=== PATIENT | male | born 1955 | race Caucasian/White ===

== ENCOUNTER 2017-05-09 12:10 | Inpatient (IN) | payer BC ==
[~2017-05-09] VITALS: Ht 193 cm; Wt 79.4 kg
[2017-05-09 12:30] VITALS: BP 143/89
[2017-05-09] MEDS ORDERED: IPRATROPIUM/ALBUTEROL 0.5-3(2.5)MG/3ML NEB HHN PRN (14:15)
[2017-05-09] MEDS ORDERED: BISACODYL 5MG TABLET PO PRN (15:45)
[2017-05-09] MEDS ORDERED: HYDROCODONE/ACETAMINOPHEN 5/325MG TABLET PO PRN (15:45)
[2017-05-09 17:12] VITALS: BP 143/89
[2017-05-09] MEDS ORDERED: NICOTINE 21MG PATCH TD NR (18:00)
[2017-05-09] MEDS: RISPERIDONE 0.5MG TABLET PO SCH (21:22)
[2017-05-10] MEDS: IPRATROPIUM/ALBUTEROL 0.5-3(2.5)MG/3ML NEB HHN SCH ×4 (00:27→20:36)
[2017-05-10] MEDS: BUDESONIDE 0.5MG/2ML NEB HHN SCH ×3 (00:31→20:37)
[2017-05-10 06:16] VITALS: BP 131/85
[2017-05-10] MEDS: PANTOPRAZOLE 40MG DR TABLET PO SCH (06:45)
[2017-05-10 08:00] LABS: BASOPHILS % 0.8 % (0.0-2.0); EOSINOPHILS % 2.9 % (0.0-5.0); HEMATOCRIT. 29.1 % (42.0-52.0); LYMPHOCYTES % 10.7 % (20.0-50.0); MEAN CORPUSCULAR HEMOGLOBIN 40.5 pg (28.0-32.0); MEAN CORPUSCULAR VOLUME 117.4 fL (80.0-94.0); MEAN PLATELET VOLUME 8.2 fl (7.4-10.4); MONOCYTES % 12.3 % (2.0-8.0); NEUTROPHILS % 73.3 % (40.0-76.0); PLATELET 294 x1000/uL (130-400); RED BLOOD CELL COUNT 2.48 mill/uL (4.7-6.1); RED CELL DISTRIBUTION WIDTH 20.3 % (11.6-14.6)
[2017-05-10 08:01] VITALS: BP 111/71
[2017-05-10 08:29] LABS: CARBON DIOXIDE 32 mEq/L (21-32); CHLORIDE 100 mEq/L (98-107)
[2017-05-10] MEDS: FOLIC ACID 1MG TABLET PO SCH (09:15)
[2017-05-10] MEDS: DOCUSATE SODIUM 100MG CAPSULE PO SCH (09:15)
[2017-05-10] MEDS: MULTIVITAMINS,THER W-MINERALS TABLET PO SCH (09:16)
[2017-05-10] MEDS: NICOTINE 21MG PATCH TD SCH (09:16)
[2017-05-10] MEDS: THIAMINE HCL 100MG TABLET PO SCH (09:16)
[2017-05-10] MEDS: ENOXAPARIN 40MG/0.4ML SYR SUBCUT SCH (09:23)
[2017-05-10 10:24] LABS: TOTAL IRON BINDING CAPACITY 160 ug/dL (250-450)
[2017-05-10] MEDS: FERROUS SULFATE 325MG TABLET PO SCH ×2 (14:28→16:41)
[2017-05-10 15:57] LABS: PLATELET ESTIMATE NORMAL
[2017-05-10] MEDS: HYDROCODONE/ACETAMINOPHEN 5/325MG TABLET PO PRN (16:58)
[2017-05-10 20:00] VITALS: BP 106/73
[2017-05-10] MEDS: RISPERIDONE 0.5MG TABLET PO SCH (20:39)
[2017-05-10] MEDS: ALPRAZOLAM 0.5 MG TABLET PO PRN (22:20)
[2017-05-10 22:21] VITALS: BP 102/66
[2017-05-10 23:51] LABS: CLARITY URINE CLEAR (CLEAR); COLOR URINE YELLOW (YELLOW); GLUCOSE URINE NEGATIVE (NEGATIVE); KETONES URINE NEGATIVE (NEGATIVE); LEUKOCYTE ESTERASE URINE NEGATIVE (NEGATIVE); NITRITE URINE NEGATIVE (NEGATIVE); OCCULT BLOOD URINE NEGATIVE (NEGATIVE); PH URINE 5.5 (4.5-8.0); PROTEIN URINE NEGATIVE (NEGATIVE); SPECIFIC GRAVITY URINE 1.022 (1.005-1.030); UROBILINOGEN URINE 0.2 E.U./dL (0.2-1.0)
[2017-05-11] MEDS: IPRATROPIUM/ALBUTEROL 0.5-3(2.5)MG/3ML NEB HHN SCH ×4 (02:30→19:44)
[2017-05-11] MEDS: PANTOPRAZOLE 40MG DR TABLET PO SCH (06:11)
[2017-05-11] MEDS: BUDESONIDE 0.5MG/2ML NEB HHN SCH ×2 (07:18→19:44)
[2017-05-11] MEDS ORDERED: ACETAMINOPHEN 325MG TABLET PO PRN (07:45)
[2017-05-11 07:46] VITALS: BP 101/68
[2017-05-11 08:02] LABS: BASOPHILS % 1.3 % (0.0-2.0); EOSINOPHILS % 3.5 % (0.0-5.0); HEMATOCRIT. 28.4 % (42.0-52.0); HEMOGLOBIN. 9.8 g/dL (14.0-18.0); LYMPHOCYTES % 13.3 % (20.0-50.0); MEAN CORPUSCULAR HEMOGLOBIN 40.2 pg (28.0-32.0); MEAN CORPUSCULAR VOLUME 116.1 fL (80.0-94.0); MEAN PLATELET VOLUME 8.5 fl (7.4-10.4); MONOCYTES % 11.3 % (2.0-8.0); NEUTROPHILS % 70.6 % (40.0-76.0); PLATELET 304 x1000/uL (130-400); RED BLOOD CELL COUNT 2.44 mill/uL (4.7-6.1); RED CELL DISTRIBUTION WIDTH 21.2 % (11.6-14.6)
[2017-05-11 08:26] LABS: CARBON DIOXIDE 30 mEq/L (21-32); CHLORIDE 103 mEq/L (98-107); CREATINE KINASE 26 IU/L (39-308); HDL CHOLESTEROL 45 mg/dL (40-59); LDL CHOLESTEROL 62 mg/dL (5-100)
[2017-05-11] MEDS: DOCUSATE SODIUM 100MG CAPSULE PO SCH (09:00)
[2017-05-11] MEDS: NICOTINE 21MG PATCH TD SCH (09:00)
[2017-05-11] MEDS: MULTIVITAMINS,THER W-MINERALS TABLET PO SCH (09:31)
[2017-05-11] MEDS: FOLIC ACID 1MG TABLET PO SCH (09:31)
[2017-05-11] MEDS: FERROUS SULFATE 325MG TABLET PO SCH ×3 (09:31→16:50)
[2017-05-11] MEDS: THIAMINE HCL 100MG TABLET PO SCH (09:31)
[2017-05-11] MEDS: ENOXAPARIN 40MG/0.4ML SYR SUBCUT SCH (09:32)
[2017-05-11 12:20] VITALS: BP 105/75
[2017-05-11] MEDS: HYDROCODONE/ACETAMINOPHEN 5/325MG TABLET PO PRN ×3 (12:23→21:26)
[2017-05-11 13:53] LABS: PROSTRATE SPECIFIC AG TOTAL 0.33 ng/mL (0.0-4.0)
[2017-05-11 14:32] LABS: FOLIC ACID (FOLATE) SERUM 5.7 ng/mL (>5.38)
[2017-05-11 16:35] VITALS: BP 112/68
[2017-05-11 20:00] VITALS: BP 116/77
[2017-05-11] MEDS: RISPERIDONE 0.5MG TABLET PO SCH (21:26)
[2017-05-12] MEDS: ALPRAZOLAM 0.5 MG TABLET PO PRN (00:04)
[2017-05-12] MEDS: PANTOPRAZOLE 40MG DR TABLET PO SCH (06:54)
[2017-05-12 07:16] LABS: BASOPHILS % 3.7 % (0.0-2.0); EOSINOPHILS % 4.6 % (0.0-5.0); HEMATOCRIT. 29.1 % (42.0-52.0); HEMOGLOBIN. 9.8 g/dL (14.0-18.0); LYMPHOCYTES % 19.7 % (20.0-50.0); MEAN CORPUSCULAR HEMOGLOBIN 39.5 pg (28.0-32.0); MEAN PLATELET VOLUME 8.2 fl (7.4-10.4); MONOCYTES % 11.4 % (2.0-8.0); NEUTROPHILS % 60.6 % (40.0-76.0); PLATELET 327 x1000/uL (130-400); RED BLOOD CELL COUNT 2.48 mill/uL (4.7-6.1); RED CELL DISTRIBUTION WIDTH 21.4 % (11.6-14.6)
[2017-05-12 07:55] VITALS: BP 122/79
[2017-05-12] MEDS: IPRATROPIUM/ALBUTEROL 0.5-3(2.5)MG/3ML NEB HHN SCH ×4 (08:00→20:39)
[2017-05-12] MEDS: BUDESONIDE 0.5MG/2ML NEB HHN SCH (08:05)
[2017-05-12 08:30] LABS: CARBON DIOXIDE 31 mEq/L (21-32); CHLORIDE 104 mEq/L (98-107)
[2017-05-12] MEDS: DOCUSATE SODIUM 100MG CAPSULE PO SCH (09:00)
[2017-05-12] MEDS: NICOTINE 21MG PATCH TD SCH (09:00)
[2017-05-12] MEDS: CYANOCOBALAMIN 1000MCG/ML VIAL IM SCH (09:50)
[2017-05-12] MEDS: MULTIVITAMINS,THER W-MINERALS TABLET PO SCH (09:50)
[2017-05-12] MEDS: FOLIC ACID 1MG TABLET PO SCH (09:50)
[2017-05-12] MEDS: THIAMINE HCL 100MG TABLET PO SCH (09:50)
[2017-05-12] MEDS: FERROUS SULFATE 325MG TABLET PO SCH ×3 (09:51→18:24)
[2017-05-12] MEDS: ENOXAPARIN 40MG/0.4ML SYR SUBCUT SCH (09:52)
[2017-05-12] MEDS: HYDROCODONE/ACETAMINOPHEN 5/325MG TABLET PO PRN ×2 (12:05→18:26)
[2017-05-12 19:50] VITALS: BP 131/79
[2017-05-12] MEDS: RISPERIDONE 0.5MG TABLET PO SCH (21:37)
[2017-05-13] MEDS: IPRATROPIUM/ALBUTEROL 0.5-3(2.5)MG/3ML NEB HHN SCH ×2 (01:20→07:24)
[2017-05-13] MEDS: HYDROCODONE/ACETAMINOPHEN 5/325MG TABLET PO PRN (03:52)
[2017-05-13] MEDS: PANTOPRAZOLE 40MG DR TABLET PO SCH (06:35)
[2017-05-13 08:00] VITALS: BP 127/70
[2017-05-13] MEDS: THIAMINE HCL 100MG TABLET PO SCH (08:33)
[2017-05-13] MEDS: FERROUS SULFATE 325MG TABLET PO SCH (08:33)
[2017-05-13] MEDS: ENOXAPARIN 40MG/0.4ML SYR SUBCUT SCH (08:33)
[2017-05-13] MEDS: MULTIVITAMINS,THER W-MINERALS TABLET PO SCH (08:34)
[2017-05-13] MEDS: DOCUSATE SODIUM 100MG CAPSULE PO SCH (08:34)
[2017-05-13] MEDS: FOLIC ACID 1MG TABLET PO SCH (08:34)
[2017-05-13] MEDS: NICOTINE 21MG PATCH TD SCH (08:34)
[2017-05-13] MEDS: CYANOCOBALAMIN 1000MCG/ML VIAL IM SCH (08:34)
[2017-05-13 09:46] VITALS: BP 127/70
[2017-05-14 19:12] LABS: 25-HYDROXY VITAMIN D3 17 ng/mL (.)
== END 2017-05-13 11:00 | disposition home health service (06) | DRG 562 ==
PROVIDERS: ADMIT Physical Medicine & Rehabilitation Spinal Cord Injury Medicine; ATTEND Family Medicine Adult Medicine
DX: S82.142A Displaced bicondylar fracture of left tibia, initial encounter for closed fracture (principal); E43 Unspecified severe protein-calorie malnutrition; D69.6 Thrombocytopenia, unspecified; E87.1 Hypo-osmolality and hyponatremia; L89.629 Pressure ulcer of left heel, unspecified stage; D64.9 Anemia, unspecified; S82.892A Other fracture of left lower leg, initial encounter for closed fracture; E61.1 Iron deficiency; E87.6 Hypokalemia; F17.210 Nicotine dependence, cigarettes, uncomplicated; F32.9 Major depressive disorder, single episode, unspecified; J44.9 Chronic obstructive pulmonary disease, unspecified; R00.0 Tachycardia, unspecified; F10.20 Alcohol dependence, uncomplicated; S92.422A Displaced fracture of distal phalanx of left great toe, initial encounter for closed fracture; S83.242A Other tear of medial meniscus, current injury, left knee, initial encounter; K59.00 Constipation, unspecified; R26.9 Unspecified abnormalities of gait and mobility; W18.30XA Fall on same level, unspecified, initial encounter; Z90.49 Acquired absence of other specified parts of digestive tract; Z98.42 Cataract extraction status, left eye; Z98.41 Cataract extraction status, right eye; Z79.899 Other long term (current) drug therapy
CPT/HCPCS: 36415; 71010; 80048; 80061; 80076; 81003; 82306; 82550; 82607; 82746; 82962; 83540; 83550; 83690; 83735; 84134; 84153; 84443; 84630; 85025; 87040; 87086; 93970; 94640; 97110; 97116; 97162; 97166; 97530; 97535; 97542; J1650; J3420; J7620; J7626

== ENCOUNTER 2018-05-26 18:40 | Inpatient (IN) | payer BC ==
[~2018-05-26] VITALS: Ht 190.5 cm; Wt 73.5 kg
[2018-05-26 19:45] VITALS: BP 170/99
[2018-05-26 20:00] VITALS: BP 156/92
[2018-05-26] MEDS ORDERED: CLONIDINE 0.1MG TABLET PO PRN (20:00)
[2018-05-26] MEDS ORDERED: TRAMADOL 50MG TABLET PO PRN (20:00)
[2018-05-26] MEDS ORDERED: NON FORMULARY PATIENT HOME MED EA XX SCH (20:00)
[2018-05-26] MEDS ORDERED: ALBUTEROL 6.7GM HFA INHALER INH PRN (20:00)
[2018-05-26] MEDS ORDERED: MAGNESIUM HYDROXIDE 400MG/5ML 30ML UDC PO PRN (20:42)
[2018-05-26] MEDS: METOPROLOL TARTRATE 25MG TABLET PO SCH (20:45)
[2018-05-26] MEDS: QUETIAPINE FUMARATE 25MG TABLET PO SCH (20:45)
[2018-05-26] MEDS ORDERED: ALBUTEROL (0.083%) 2.5MG/3ML NEB HHN PRN (21:00)
[2018-05-27] MEDS: PANTOPRAZOLE 40MG DR TABLET PO SCH ×2 (06:21→09:37)
[2018-05-27 07:00] LABS: BASOPHILS % 1.1 % (0.0-2.0); HEMATOCRIT. 22.1 % (42.0-52.0); HEMOGLOBIN. 7.8 g/dL (14.0-18.0); LYMPHOCYTES % 14.4 % (20.0-50.0); MEAN CORPUSCULAR VOLUME 99.9 fL (80.0-94.0); MEAN PLATELET VOLUME 8.1 fl (7.4-10.4); MONOCYTES % 13.7 % (2.0-8.0); NEUTROPHILS % 69.8 % (40.0-76.0); PLATELET 90 x1000/uL (130-400); RED BLOOD CELL COUNT 2.22 mill/uL (4.7-6.1); RED CELL DISTRIBUTION WIDTH 22.2 % (11.6-14.6)
[2018-05-27] MEDS ORDERED: LANSOPRAZOLE 15MG DR CAPSULE NG SCH (07:00)
[2018-05-27 07:36] LABS: CHLORIDE 96 mEq/L (98-107)
[2018-05-27] MEDS: ALBUTEROL (0.083%) 2.5MG/3ML NEB HHN SCH ×4 (07:40→20:05)
[2018-05-27] MEDS: BUDESONIDE 0.5MG/2ML NEB HHN SCH ×2 (07:40→20:06)
[2018-05-27 08:00] VITALS: BP 111/62
[2018-05-27] MEDS: POTASSIUM CHLORIDE 8 MEQ TABLET.SA PO SCH ×2 (09:00→17:44)
[2018-05-27] MEDS: NICOTINE 21MG PATCH TD SCH (09:36)
[2018-05-27] MEDS: METOPROLOL TARTRATE 25MG TABLET PO SCH ×2 (09:36→21:00)
[2018-05-27] MEDS: MAGNESIUM OXIDE 400MG TABLET PO SCH ×2 (09:37→17:44)
[2018-05-27] MEDS: QUETIAPINE FUMARATE 25MG TABLET PO SCH ×2 (09:37→20:29)
[2018-05-27] MEDS: DOCUSATE SODIUM 100MG CAPSULE PO SCH ×2 (09:37→17:44)
[2018-05-27] MEDS: ACETAMINOPHEN 325MG TABLET PO PRN ×2 (09:54→23:16)
[2018-05-27] MEDS: CHLORDIAZEPOXIDE 25MG CAPSULE PO SCH (10:32)
[2018-05-27] MEDS ORDERED: VANCOMYCIN 1 G PREMIX 200 ML IV NR (12:00)
[2018-05-27] MEDS: FOLIC ACID 1MG TABLET PO SCH (13:11)
[2018-05-27] MEDS: THIAMINE HCL 100MG TABLET PO SCH (13:11)
[2018-05-27] MEDS: MULTIVITAMINS,THER W-MINERALS TABLET PO SCH (13:11)
[2018-05-27 14:09] LABS: CLARITY URINE CLEAR (CLEAR); COLOR URINE DARK YELLOW (YELLOW); KETONES URINE 1+ (NEGATIVE); LEUKOCYTE ESTERASE URINE TRACE (NEGATIVE); NITRITE URINE NEGATIVE (NEGATIVE); OCCULT BLOOD URINE NEGATIVE (NEGATIVE); PH URINE 5.5 (4.5-8.0); PROTEIN URINE NEGATIVE (NEGATIVE)
[2018-05-27 14:47] LABS: PLATELET ESTIMATE DECREASED
[2018-05-27] MEDS: PIPERACILLIN/TAZ 3.375G PREMIX 50 ML IV SCH ×2 (15:46→21:08)
[2018-05-27 16:19] LABS: AMMONIA 29 uMol/L (<32)
[2018-05-27 16:28] LABS: T4 FREE 1.4 ng/dL (0.76-1.46)
[2018-05-27 16:47] LABS: FOLIC ACID (FOLATE) SERUM 3.5 ng/mL (>5.38)
[2018-05-27] MEDS ORDERED: LORAZEPAM 2MG/ML CPJ IV PRN (17:30)
[2018-05-27] MEDS: GUAIFENESIN-DM 200MG-20MG/10ML UDC PO PRN (17:44)
[2018-05-27 20:00] VITALS: BP 104/63
[2018-05-28] VITALS (7 sets, daily range): BP systolic 87–120; BP diastolic 53–75
[2018-05-28] MEDS: GUAIFENESIN-DM 200MG-20MG/10ML UDC PO PRN (05:22)
[2018-05-28] MEDS: PIPERACILLIN/TAZ 3.375G PREMIX 50 ML IV SCH ×2 (05:22→12:55)
[2018-05-28] MEDS: PANTOPRAZOLE 40MG DR TABLET PO SCH (06:15)
[2018-05-28 06:51] LABS: AMMONIA 23 uMol/L (<32)
[2018-05-28 06:53] LABS: BASOPHILS % 1.3 % (0.0-2.0); EOSINOPHILS % 2.5 % (0.0-5.0); HEMOGLOBIN. 7.1 g/dL (14.0-18.0); LYMPHOCYTES % 22.9 % (20.0-50.0); MEAN CORPUSCULAR HEMOGLOBIN 34.2 pg (28.0-32.0); MEAN CORPUSCULAR VOLUME 100.7 fL (80.0-94.0); MONOCYTES % 16.7 % (2.0-8.0); NEUTROPHILS % 56.6 % (40.0-76.0); PLATELET 108 x1000/uL (130-400); RED BLOOD CELL COUNT 2.08 mill/uL (4.7-6.1)
[2018-05-28 07:11] LABS: CHLORIDE 98 mEq/L (98-107)
[2018-05-28] MEDS: BUDESONIDE 0.5MG/2ML NEB HHN SCH ×2 (07:31→19:49)
[2018-05-28] MEDS: ALBUTEROL (0.083%) 2.5MG/3ML NEB HHN SCH ×4 (07:33→19:50)
[2018-05-28] MEDS: FOLIC ACID 1MG TABLET PO SCH (09:04)
[2018-05-28] MEDS: THIAMINE HCL 100MG TABLET PO SCH (09:04)
[2018-05-28] MEDS: CHLORDIAZEPOXIDE 25MG CAPSULE PO SCH (09:04)
[2018-05-28] MEDS: QUETIAPINE FUMARATE 25MG TABLET PO SCH ×2 (09:04→21:51)
[2018-05-28] MEDS: POTASSIUM CHLORIDE 8 MEQ TABLET.SA PO SCH ×2 (09:04→19:11)
[2018-05-28] MEDS: NICOTINE 21MG PATCH TD SCH (09:04)
[2018-05-28] MEDS: DOCUSATE SODIUM 100MG CAPSULE PO SCH ×2 (09:05→17:41)
[2018-05-28] MEDS: METOPROLOL TARTRATE 25MG TABLET PO SCH ×2 (09:05→21:00)
[2018-05-28] MEDS: MAGNESIUM OXIDE 400MG TABLET PO SCH ×2 (09:05→17:41)
[2018-05-28] MEDS: MULTIVITAMINS,THER W-MINERALS TABLET PO SCH (09:06)
[2018-05-28] MEDS: HYDROCODONE/ACETAMINOPHEN 5/325MG TABLET PO PRN (14:05)
[2018-05-28] MEDS: LACTULOSE 20G/30ML UDC PO SCH ×2 (19:09→20:00)
[2018-05-28] MEDS: VANCOMYCIN 1250MG in DEXTROSE 5% WATER 250ML IV SCH (21:52)
[2018-05-29] MEDS: LACTULOSE 20G/30ML UDC PO SCH (00:20)
[2018-05-29] MEDS: PIPERACILLIN/TAZ 3.375G PREMIX 50 ML IV SCH ×4 (00:20→22:37)
[2018-05-29] MEDS: PANTOPRAZOLE 40MG DR TABLET PO SCH (06:06)
[2018-05-29] MEDS: HYDROCODONE/ACETAMINOPHEN 5/325MG TABLET PO PRN (06:23)
[2018-05-29] MEDS: VANCOMYCIN 1250MG in DEXTROSE 5% WATER 250ML IV SCH ×2 (06:48→20:25)
[2018-05-29 07:51] VITALS: BP 115/68
[2018-05-29 07:57] LABS: EOSINOPHILS % 4.1 % (0.0-5.0); HEMATOCRIT. 24.2 % (42.0-52.0); HEMOGLOBIN. 8.3 g/dL (14.0-18.0); MEAN CORPUSCULAR HEMOGLOBIN 34.3 pg (28.0-32.0); MEAN CORPUSCULAR VOLUME 99.9 fL (80.0-94.0); MEAN PLATELET VOLUME 8.4 fl (7.4-10.4); MONOCYTES % 14.8 % (2.0-8.0); NEUTROPHILS % 58.1 % (40.0-76.0); PLATELET 159 x1000/uL (130-400); RED BLOOD CELL COUNT 2.42 mill/uL (4.7-6.1); RED CELL DISTRIBUTION WIDTH 22.9 % (11.6-14.6)
[2018-05-29 08:18] LABS: CHLORIDE 99 mEq/L (98-107)
[2018-05-29 08:36] LABS: TOTAL IRON BINDING CAPACITY 191 ug/dL (250-450)
[2018-05-29] MEDS: MAGNESIUM OXIDE 400MG TABLET PO SCH ×2 (08:54→17:18)
[2018-05-29] MEDS: FOLIC ACID 1MG TABLET PO SCH (08:54)
[2018-05-29] MEDS: THIAMINE HCL 100MG TABLET PO SCH (08:54)
[2018-05-29] MEDS: CHLORDIAZEPOXIDE 25MG CAPSULE PO SCH (08:54)
[2018-05-29] MEDS: DOCUSATE SODIUM 100MG CAPSULE PO SCH ×2 (08:54→17:18)
[2018-05-29] MEDS: MULTIVITAMINS,THER W-MINERALS TABLET PO SCH (08:54)
[2018-05-29] MEDS: QUETIAPINE FUMARATE 25MG TABLET PO SCH ×2 (08:54→20:45)
[2018-05-29] MEDS: METOPROLOL TARTRATE 25MG TABLET PO SCH ×2 (08:55→20:46)
[2018-05-29] MEDS: POTASSIUM CHLORIDE 8 MEQ TABLET.SA PO SCH ×2 (08:56→17:18)
[2018-05-29] MEDS: NICOTINE 21MG PATCH TD SCH (08:57)
[2018-05-29] MEDS: ALBUTEROL (0.083%) 2.5MG/3ML NEB HHN SCH ×4 (09:00→21:23)
[2018-05-29] MEDS: BUDESONIDE 0.5MG/2ML NEB HHN SCH ×2 (09:00→21:24)
[2018-05-29] MEDS: ACETAMINOPHEN 325MG TABLET PO PRN ×2 (13:03→20:47)
[2018-05-29] MEDS ORDERED: HYDROCODONE/ACETAMINOPHEN 10/325MG TABLET PO PRN (14:30)
[2018-05-29] MEDS: LIDOCAINE 5% PATCH TOP SCH ×2 (17:15→20:47)
[2018-05-29] MEDS: FERROUS SULFATE 325MG TABLET PO SCH (17:18)
[2018-05-29 20:00] VITALS: BP 105/68
[2018-05-29 20:07] LABS: PROSTRATE SPECIFIC AG TOTAL 0.4 ng/mL (0.0-4.0)
[2018-05-30 05:42] LABS: CHLORIDE 101 mEq/L (98-107)
[2018-05-30 05:45] LABS: VANCOMYCIN TROUGH 19.4 ug/mL (5.0-10.0)
[2018-05-30 06:12] LABS: EOSINOPHILS % 3.6 % (0.0-5.0); HEMATOCRIT. 22.4 % (42.0-52.0); HEMOGLOBIN. 7.8 g/dL (14.0-18.0); LYMPHOCYTES % 20.6 % (20.0-50.0); MEAN CORPUSCULAR VOLUME 100.8 fL (80.0-94.0); MEAN PLATELET VOLUME 8.6 fl (7.4-10.4); MONOCYTES % 11.5 % (2.0-8.0); NEUTROPHILS % 63.3 % (40.0-76.0); PLATELET 196 x1000/uL (130-400); RED BLOOD CELL COUNT 2.22 mill/uL (4.7-6.1); RED CELL DISTRIBUTION WIDTH 21.1 % (11.6-14.6)
[2018-05-30] MEDS: VANCOMYCIN 1250MG in DEXTROSE 5% WATER 250ML IV SCH ×2 (06:22→18:17)
[2018-05-30] MEDS: PANTOPRAZOLE 40MG DR TABLET PO SCH (07:51)
[2018-05-30] MEDS: PIPERACILLIN/TAZ 3.375G PREMIX 50 ML IV SCH ×3 (07:51→22:45)
[2018-05-30 07:58] VITALS: BP 152/87
[2018-05-30] MEDS: ALBUTEROL (0.083%) 2.5MG/3ML NEB HHN SCH ×4 (09:08→20:55)
[2018-05-30] MEDS: POTASSIUM CHLORIDE 8 MEQ TABLET.SA PO SCH ×2 (09:26→16:46)
[2018-05-30] MEDS: ASCORBIC ACID 500 MG TABLET PO SCH (09:26)
[2018-05-30] MEDS: QUETIAPINE FUMARATE 25MG TABLET PO SCH ×2 (09:26→22:45)
[2018-05-30] MEDS: FOLIC ACID 1MG TABLET PO SCH (09:26)
[2018-05-30] MEDS: DOCUSATE SODIUM 100MG CAPSULE PO SCH ×2 (09:26→16:47)
[2018-05-30] MEDS: THIAMINE HCL 100MG TABLET PO SCH (09:27)
[2018-05-30] MEDS: MULTIVITAMINS,THER W-MINERALS TABLET PO SCH (09:27)
[2018-05-30] MEDS: FERROUS SULFATE 325MG TABLET PO SCH ×3 (09:27→16:47)
[2018-05-30] MEDS: METOPROLOL TARTRATE 25MG TABLET PO SCH ×2 (09:28→21:00)
[2018-05-30] MEDS: MAGNESIUM OXIDE 400MG TABLET PO SCH ×2 (09:29→16:47)
[2018-05-30] MEDS: CHLORDIAZEPOXIDE 25MG CAPSULE PO SCH (09:29)
[2018-05-30] MEDS: LIDOCAINE 5% PATCH TOP SCH (10:20)
[2018-05-30] MEDS: NICOTINE 21MG PATCH TD SCH (10:21)
[2018-05-30] MEDS: ACETAMINOPHEN 325MG TABLET PO PRN (13:33)
[2018-05-30] MEDS: OXYCODONE HCL 5MG TABLET PO SCH (16:48)
[2018-05-30 20:00] VITALS: BP 104/65
[2018-05-31] MEDS: OXYCODONE HCL 5MG TABLET PO SCH ×5 (04:24→21:15)
[2018-05-31] MEDS: VANCOMYCIN 1250MG in DEXTROSE 5% WATER 250ML IV SCH ×2 (04:25→18:20)
[2018-05-31] MEDS: PANTOPRAZOLE 40MG DR TABLET PO SCH (07:06)
[2018-05-31 08:00] VITALS: BP 131/78
[2018-05-31] MEDS: ALBUTEROL (0.083%) 2.5MG/3ML NEB HHN SCH ×4 (08:09→20:54)
[2018-05-31] MEDS: PIPERACILLIN/TAZ 3.375G PREMIX 50 ML IV SCH (08:34)
[2018-05-31] MEDS: FOLIC ACID 1MG TABLET PO SCH (08:35)
[2018-05-31] MEDS: MAGNESIUM OXIDE 400MG TABLET PO SCH ×2 (08:35→18:11)
[2018-05-31] MEDS: DOCUSATE SODIUM 100MG CAPSULE PO SCH ×2 (08:35→18:11)
[2018-05-31] MEDS: FERROUS SULFATE 325MG TABLET PO SCH ×3 (08:35→18:11)
[2018-05-31] MEDS: CHLORDIAZEPOXIDE 25MG CAPSULE PO SCH (08:35)
[2018-05-31] MEDS: POTASSIUM CHLORIDE 8 MEQ TABLET.SA PO SCH ×2 (08:35→18:11)
[2018-05-31] MEDS: QUETIAPINE FUMARATE 25MG TABLET PO SCH ×2 (08:35→20:53)
[2018-05-31] MEDS: METOPROLOL TARTRATE 25MG TABLET PO SCH ×2 (08:48→20:54)
[2018-05-31] MEDS ORDERED: HYDROMORPHONE HCL/PF 2MG/ML CPJ SUBCUT SCH (09:15)
[2018-05-31] MEDS: THIAMINE HCL 100MG TABLET PO SCH (09:30)
[2018-05-31] MEDS: MULTIVITAMINS,THER W-MINERALS TABLET PO SCH (09:30)
[2018-05-31] MEDS: ASCORBIC ACID 500 MG TABLET PO SCH (09:30)
[2018-05-31] MEDS: NICOTINE 21MG PATCH TD SCH (09:30)
[2018-05-31] MEDS: LIDOCAINE 5% PATCH TOP SCH (09:32)
[2018-05-31] MEDS: HYDROMORPHONE HCL/PF 2MG/ML CPJ SUBCUT SCH (18:12)
[2018-05-31 20:00] VITALS: BP 117/74
[2018-06-01] MEDS: GUAIFENESIN-DM 200MG-20MG/10ML UDC PO PRN (00:10)
[2018-06-01] MEDS: OXYCODONE HCL 5MG TABLET PO SCH ×2 (05:10→10:15)
[2018-06-01] MEDS: VANCOMYCIN 1250MG in DEXTROSE 5% WATER 250ML IV SCH (05:11)
[2018-06-01 07:46] LABS: EOSINOPHILS % 3.6 % (0.0-5.0); HEMATOCRIT. 24.4 % (42.0-52.0); HEMOGLOBIN. 8.3 g/dL (14.0-18.0); LYMPHOCYTES % 13.2 % (20.0-50.0); MEAN CORPUSCULAR HEMOGLOBIN 34.7 pg (28.0-32.0); MEAN CORPUSCULAR VOLUME 101.7 fL (80.0-94.0); MEAN PLATELET VOLUME 8.1 fl (7.4-10.4); MONOCYTES % 7.8 % (2.0-8.0); NEUTROPHILS % 74.4 % (40.0-76.0); PLATELET 290 x1000/uL (130-400); RED CELL DISTRIBUTION WIDTH 22.3 % (11.6-14.6)
[2018-06-01 07:59] LABS: CHLORIDE 99 mEq/L (98-107)
[2018-06-01 08:00] VITALS: BP 119/78
[2018-06-01] MEDS: METOPROLOL TARTRATE 25MG TABLET PO SCH (09:00)
[2018-06-01] MEDS ORDERED: FAMOTIDINE 20MG TABLET PO SCH (09:00)
[2018-06-01] MEDS: HYDROMORPHONE HCL/PF 2MG/ML CPJ SUBCUT SCH (09:17)
[2018-06-01] MEDS: THIAMINE HCL 100MG TABLET PO SCH (09:18)
[2018-06-01] MEDS: QUETIAPINE FUMARATE 25MG TABLET PO SCH (09:18)
[2018-06-01] MEDS: NICOTINE 21MG PATCH TD SCH (09:18)
[2018-06-01] MEDS: DOCUSATE SODIUM 100MG CAPSULE PO SCH (09:18)
[2018-06-01] MEDS: FERROUS SULFATE 325MG TABLET PO SCH ×2 (09:19→13:24)
[2018-06-01] MEDS: MULTIVITAMINS,THER W-MINERALS TABLET PO SCH (09:19)
[2018-06-01] MEDS: ASCORBIC ACID 500 MG TABLET PO SCH (09:19)
[2018-06-01] MEDS: POTASSIUM CHLORIDE 8 MEQ TABLET.SA PO SCH (09:19)
[2018-06-01] MEDS: LIDOCAINE 5% PATCH TOP SCH (09:20)
[2018-06-01] MEDS: FOLIC ACID 1MG TABLET PO SCH (09:20)
[2018-06-01] MEDS: CHLORDIAZEPOXIDE 25MG CAPSULE PO SCH (09:21)
[2018-06-01] MEDS: MAGNESIUM OXIDE 400MG TABLET PO SCH (09:21)
[2018-06-01] MEDS: ALBUTEROL (0.083%) 2.5MG/3ML NEB HHN SCH (11:37)
[2018-06-01 15:35] VITALS: BP 119/78
[2018-06-03 04:13] LABS: 25-HYDROXY VITAMIN D3 16 ng/mL (.)
== END 2018-06-01 15:50 | disposition home health service (06) | DRG 535 ==
PROVIDERS: ADMIT Physical Medicine & Rehabilitation Spinal Cord Injury Medicine; ATTEND Specialist
DX: S72.142A Displaced intertrochanteric fracture of left femur, initial encounter for closed fracture (principal); G92 Toxic encephalopathy; E46 Unspecified protein-calorie malnutrition; D61.818 Other pancytopenia; F10.239 Alcohol dependence with withdrawal, unspecified; R53.81 Other malaise; J44.9 Chronic obstructive pulmonary disease, unspecified; F17.200 Nicotine dependence, unspecified, uncomplicated; S72.22XA Displaced subtrochanteric fracture of left femur, initial encounter for closed fracture; W18.39XA Other fall on same level, initial encounter; D72.829 Elevated white blood cell count, unspecified; R50.9 Fever, unspecified; Y90.9 Presence of alcohol in blood, level not specified; D63.8 Anemia in other chronic diseases classified elsewhere; D50.9 Iron deficiency anemia, unspecified; F32.9 Major depressive disorder, single episode, unspecified; F41.9 Anxiety disorder, unspecified; I10 Essential (primary) hypertension; R29.6 Repeated falls; I95.1 Orthostatic hypotension; M72.0 Palmar fascial fibromatosis [Dupuytren]; Y93.89 Activity, other specified; Y92.89 Other specified places as the place of occurrence of the external cause; Y99.8 Other external cause status; Z82.49 Family history of ischemic heart disease and other diseases of the circulatory system; Z68.20 Body mass index [BMI] 20.0-20.9, adult; Z90.49 Acquired absence of other specified parts of digestive tract
CPT/HCPCS: 36415; 70551; 71046; 80048; 80202; 82140; 82306; 82607; 82728; 82746; 83036; 83540; 83550; 84134; 84153; 84439; 84443; 84481; 84630; 86850; 86900; 86920; 92523; 92610; 93970; 94640; 97110; 97116; 97127; 97162; 97167; 97530; 97535; J1170; J2060; J2543; J3370; J7040; J7050; J7060; J7611; J7626; P9016; G0103

== ENCOUNTER 2019-01-27 20:37 | Inpatient (IN) | payer BC ==
[~2019-01-27] VITALS: Ht 190.5 cm; Wt 79.4 kg
[2019-01-27 20:00] VITALS: BP 127/79
[2019-01-27 20:30] VITALS: BP 127/79
[2019-01-27] MEDS ORDERED: ONDANSETRON HCL 4MG/2ML INJ IV PRN (23:00)
[2019-01-27] MEDS ORDERED: AZITHROMYCIN 500 MG in DEXT 5% WATER 250 ML IV SCH (23:00)
[2019-01-27] MEDS ORDERED: PIPERACILLIN/TAZ 3.375G PREMIX 50 ML IV SCH (23:00)
[2019-01-27] MEDS ORDERED: IPRATROPIUM/ALBUTEROL 0.5-3(2.5)MG/3ML NEB HHN PRN (23:00)
[2019-01-27] MEDS ORDERED: CLONIDINE 0.1MG TABLET PO PRN (23:00)
[2019-01-27] MEDS: GUAIFENESIN 600MG ER TABLET PO SCH (23:50)
[2019-01-27] MEDS: LORAZEPAM 0.5MG TABLET PO PRN (23:52)
[2019-01-28] VITALS: BP 129/86
[2019-01-28] MEDS ORDERED: PIPERACILLIN/TAZ 3.375G PREMIX 50 ML IV NR
[2019-01-28] MEDS ORDERED: AZITHROMYCIN 500 MG in DEXT 5% WATER 250 ML IV SCH (01:00)
[2019-01-28] MEDS: IPRATROPIUM/ALBUTEROL 0.5-3(2.5)MG/3ML NEB HHN SCH ×6 (01:10→21:05)
[2019-01-28] MEDS ORDERED: ACET-2178 MT (02:13)
[2019-01-28] MEDS ORDERED: PANT40TA4 MT (02:13)
[2019-01-28] MEDS ORDERED: ALBU05 NEB (02:13)
[2019-01-28] MEDS ORDERED: P20 MT (02:13)
[2019-01-28] MEDS ORDERED: LORA-249 MT (02:13)
[2019-01-28] MEDS ORDERED: FOLI-43 MT (02:13)
[2019-01-28] MEDS ORDERED: BUDE6HFA INH (02:13)
[2019-01-28] MEDS ORDERED: FERR324T4 MT (02:13)
[2019-01-28 04:00] VITALS: BP 104/59
[2019-01-28] MEDS: ACETAMINOPHEN 325MG TABLET PO PRN (04:04)
[2019-01-28 06:28] LABS: EOSINOPHILS % 2.9 % (0.0-5.0); HEMATOCRIT. 24.1 % (42.0-52.0); HEMOGLOBIN. 8.3 g/dL (14.0-18.0); LYMPHOCYTES % 8.5 % (20.0-50.0); MEAN CORPUSCULAR HEMOGLOBIN 37.7 pg (28.0-32.0); MEAN CORPUSCULAR VOLUME 109.8 fL (80.0-94.0); MEAN PLATELET VOLUME 8.3 fl (7.4-10.4); MONOCYTES % 6.1 % (2.0-8.0); NEUTROPHILS % 81.5 % (40.0-76.0); PLATELET 160 x1000/uL (130-400); RED CELL DISTRIBUTION WIDTH 20.7 % (11.6-14.6)
[2019-01-28 06:37] LABS: CHLORIDE 100 mEq/L (98-107)
[2019-01-28 06:45] LABS: PHOSPHORUS 3.4 mg/dL (2.5-4.9)
[2019-01-28 08:00] VITALS: BP 95/43
[2019-01-28] MEDS: GUAIFENESIN 600MG ER TABLET PO SCH ×2 (08:20→21:25)
[2019-01-28] MEDS: FUROSEMIDE 20MG/2ML VIAL IVP SCH (08:20)
[2019-01-28] MEDS: FERROUS SULFATE 325MG TABLET PO SCH ×3 (08:20→17:38)
[2019-01-28] MEDS: NICOTINE 21MG PATCH TD SCH (08:21)
[2019-01-28] MEDS ORDERED: DOCUSATE SODIUM 100MG CAPSULE PO PRN (08:30)
[2019-01-28] MEDS: LORAZEPAM 0.5MG TABLET PO PRN ×2 (08:35→17:38)
[2019-01-28 09:00] LABS: BG BASE EXCESS 9.6 mmol/L (-2.0-2.0); BG CARBOXYHEMOGLOBIN 0.6 % (0.5-1.5); BG DEOXYHEMOGLOBIN 7.5 % (0.0-5.0); BG FRACTION INSPIRED OXYGEN 28; BG HCO3 ACT 35.1 mmol/L (22.0-26.0); BG METHEMOGLOBIN 0.1 % (0.0-1.5); BG OXYGEN SATURATION 92.4 % (92.0-98.5); BG OXYHEMOGLOBIN 91.8 % (94.0-97.0); BG PCO2 52.7 mmHg (35.0-45.0); BG PH 7.441 (7.350-7.450); BG PO2 66.3 mmHg (75.0-100.0); BG SAMPLE SITE RIGHT RADIAL; BG TOTAL HEMOGLOBIN 9.8 g/dL (12.0-18.0); BG VENT MODE NASAL CANNULA
[2019-01-28] MEDS: ENOXAPARIN 30MG/0.3ML SYR SUBCUT SCH ×2 (09:00→21:00)
[2019-01-28] MEDS ORDERED: PIPERACILLIN/TAZ 3.375G PREMIX 50 ML IV SCH ×3 (09:00→10:00)
[2019-01-28] MEDS ORDERED: ASPIRIN 81MG EC TABLET PO SCH (11:00)
[2019-01-28] MEDS ORDERED: FUROSEMIDE 40MG/4ML VIAL IVP NR (11:10)
[2019-01-28 12:00] VITALS: BP 108/63
[2019-01-28 13:21] LABS: CLARITY URINE CLEAR (CLEAR); COLOR URINE YELLOW (YELLOW); KETONES URINE NEGATIVE (NEGATIVE); LEUKOCYTE ESTERASE URINE NEGATIVE (NEGATIVE); NITRITE URINE NEGATIVE (NEGATIVE); OCCULT BLOOD URINE NEGATIVE (NEGATIVE); PROTEIN URINE NEGATIVE (NEGATIVE); SPECIFIC GRAVITY URINE 1.006 (1.005-1.030); UROBILINOGEN URINE 0.2 E.U./dL (0.2-1.0)
[2019-01-28 13:46] LABS: *AMPHETAMINES SCREEN URINE NEGATIVE (NEGATIVE); *BARBITURATES SCREEN URINE NEGATIVE (NEGATIVE); *BENZODIAZEPINES SCREEN URINE NEGATIVE (NEGATIVE); *COCAINE SCREEN URINE NEGATIVE (NEGATIVE)
[2019-01-28 13:48] LABS: CANNABINOID URINE SCREEN NEGATIVE (NEGATIVE); METHADONE URINE SCREEN NEGATIVE (NEGATIVE); OPIATES URINE SCREEN PRESUMTIVE POSITIVE (NEGATIVE); PHENCYCLIDINE URINE SCREEN NEGATIVE (NEGATIVE)
[2019-01-28] MEDS ORDERED: MAGNESIUM 2 G PREMIX 50 ML IV NR (14:00)
[2019-01-28 15:32] LABS: INR 1.1; PROTHROMBIN TIME 11.5 sec (9.6-11.0)
[2019-01-28 16:00] VITALS: BP 111/72
[2019-01-28] MEDS: SYMBICORT 160/4.5 INHALER PO SCH (16:42)
[2019-01-28] MEDS: CEFTRIAXONE 1 G PREMIX 50 ML IV SCH (16:42)
[2019-01-28] MEDS: NYSTATIN 100,000 UNITS/ML 5ML UDC SSW SCH ×2 (17:38→23:50)
[2019-01-28 20:00] VITALS: BP 110/50
[2019-01-29] VITALS: BP 103/64
[2019-01-29] MEDS: IPRATROPIUM/ALBUTEROL 0.5-3(2.5)MG/3ML NEB HHN SCH ×6 (01:40→20:06)
[2019-01-29] MEDS: LORAZEPAM 0.5MG TABLET PO PRN ×3 (02:24→22:07)
[2019-01-29 04:00] VITALS: BP 106/67
[2019-01-29] MEDS: NYSTATIN 100,000 UNITS/ML 5ML UDC SSW SCH ×4 (06:05→23:59)
[2019-01-29] MEDS: SYMBICORT 160/4.5 INHALER PO SCH ×2 (06:05→18:07)
[2019-01-29] MEDS: OMEPRAZOLE 20MG CAPSULE EXTENDED RELEASE PO SCH (06:05)
[2019-01-29] MEDS: FERROUS SULFATE 325MG TABLET PO SCH ×3 (06:18→18:06)
[2019-01-29 07:39] LABS: HEMATOCRIT. 25.1 % (42.0-52.0); HEMOGLOBIN. 8.6 g/dL (14.0-18.0); MEAN CORPUSCULAR HEMOGLOBIN 37.1 pg (28.0-32.0); MEAN CORPUSCULAR VOLUME 108.6 fL (80.0-94.0); MEAN PLATELET VOLUME 8.6 fl (7.4-10.4); PLATELET 198 x1000/uL (130-400); RED BLOOD CELL COUNT 2.31 mill/uL (4.7-6.1); RED CELL DISTRIBUTION WIDTH 20.8 % (11.6-14.6)
[2019-01-29 08:00] VITALS: BP 107/60
[2019-01-29 08:44] LABS: CHLORIDE 99 mEq/L (98-107)
[2019-01-29] MEDS: GUAIFENESIN 600MG ER TABLET PO SCH ×2 (08:51→20:34)
[2019-01-29] MEDS: FUROSEMIDE 20MG/2ML VIAL IVP SCH (08:51)
[2019-01-29] MEDS: NICOTINE 21MG PATCH TD SCH (08:52)
[2019-01-29 09:05] LABS: LDL CHOLESTEROL 45 mg/dL (5-100); PHOSPHORUS 3.4 mg/dL (2.5-4.9)
[2019-01-29 09:08] LABS: HDL CHOLESTEROL 43 mg/dL (40-59); TOTAL IRON BINDING CAPACITY 124 ug/dL (250-450)
[2019-01-29 09:10] LABS: CREATINE KINASE 31 IU/L (39-308); CREATINE KINASE MB FRACTION 1.3 ng/mL (0.5-3.6)
[2019-01-29 12:00] VITALS: BP 136/78
[2019-01-29] MEDS ORDERED: MAGNESIUM/ALUMINUM HYDROXIDE/SIMETHICONE 30ML UDC PO PRN (14:45)
[2019-01-29 15:21] LABS: PLATELET ESTIMATE NORMAL
[2019-01-29 16:00] VITALS: BP 107/72
[2019-01-29] MEDS: CEFTRIAXONE 1 G PREMIX 50 ML IV SCH (18:06)
[2019-01-29] MEDS: ACETAMINOPHEN 325MG TABLET PO PRN (18:32)
[2019-01-29 20:00] VITALS: BP 100/62
[2019-01-29] MEDS: FAMOTIDINE 20MG TABLET PO SCH (20:34)
[2019-01-30] VITALS (12 sets, daily range): BP systolic 76–160; BP diastolic 37–93
[2019-01-30] MEDS: IPRATROPIUM/ALBUTEROL 0.5-3(2.5)MG/3ML NEB HHN SCH ×6 (00:05→20:55)
[2019-01-30] MEDS: GUAIFENESIN 200MG/10ML SUGAR FREE UDC PO PRN ×4 (01:10→21:15)
[2019-01-30] MEDS: OMEPRAZOLE 20MG CAPSULE EXTENDED RELEASE PO SCH (05:57)
[2019-01-30] MEDS: NYSTATIN 100,000 UNITS/ML 5ML UDC SSW SCH ×4 (05:57→23:33)
[2019-01-30] MEDS: ACETAMINOPHEN 325MG TABLET PO PRN ×2 (05:57→13:11)
[2019-01-30] MEDS: FERROUS SULFATE 325MG TABLET PO SCH ×3 (06:19→19:47)
[2019-01-30] MEDS: SYMBICORT 160/4.5 INHALER PO SCH ×2 (06:19→19:47)
[2019-01-30 07:20] LABS: BASOPHILS % 1.1 % (0.0-2.0); EOSINOPHILS % 3.1 % (0.0-5.0); HEMATOCRIT. 26.2 % (42.0-52.0); HEMOGLOBIN. 8.8 g/dL (14.0-18.0); LYMPHOCYTES % 8.1 % (20.0-50.0); MEAN CORPUSCULAR HEMOGLOBIN 36.9 pg (28.0-32.0); MEAN CORPUSCULAR VOLUME 109.3 fL (80.0-94.0); MEAN PLATELET VOLUME 8.4 fl (7.4-10.4); MONOCYTES % 6.2 % (2.0-8.0); NEUTROPHILS % 81.5 % (40.0-76.0); PLATELET 173 x1000/uL (130-400); RED CELL DISTRIBUTION WIDTH 20.2 % (11.6-14.6)
[2019-01-30 07:41] LABS: CHLORIDE 100 mEq/L (98-107)
[2019-01-30 07:54] LABS: TOTAL IRON BINDING CAPACITY 148 ug/dL (250-450)
[2019-01-30] MEDS: FUROSEMIDE 20MG/2ML VIAL IVP SCH (09:00)
[2019-01-30] MEDS ORDERED: SODIUM CHLORIDE 0.9% 250 ML IV ONE (09:00)
[2019-01-30] MEDS ORDERED: NITROGLYCERIN 50MCG/ML 10ML VIAL (CATH LAB) IV ONE (09:14)
[2019-01-30] MEDS ORDERED: NICARDIPINE 100MCG/ML 10ML VIAL (CATH LAB) IV ONE (09:14)
[2019-01-30] MEDS: GUAIFENESIN 600MG ER TABLET PO SCH ×2 (09:21→21:15)
[2019-01-30] MEDS: FAMOTIDINE 20MG TABLET PO SCH ×2 (09:21→21:15)
[2019-01-30] MEDS: NICOTINE 21MG PATCH TD SCH (09:21)
[2019-01-30] MEDS: LORAZEPAM 0.5MG TABLET PO PRN ×2 (13:10→21:24)
[2019-01-30] MEDS ORDERED: FENTANYL CITRATE/PF 50MCG/ML 2ML VIAL ONE (14:33)
[2019-01-30] MEDS ORDERED: MIDAZOLAM HCL 2 MG/2 ML VIAL ONE (14:33)
[2019-01-30] MEDS ORDERED: ASPIRIN/SOD BICARB/CITRIC ACID 324MG TAB EFF ONE (14:33)
[2019-01-30] MEDS ORDERED: LIDOCAINE HCL 1% 20ML VIAL (Pyxis) INJ ONE ×2 (14:34→15:46)
[2019-01-30] MEDS ORDERED: IODIXANOL 320MG/ML 100 ML BOTTLE IV ONE (15:00)
[2019-01-30] MEDS: CEFEPIME 1,000 MG in DEXTROSE 5% WATER 50 ML IV SCH (16:00)
[2019-01-30] MEDS ORDERED: ATROPINE SULFATE 1MG/10ML SYR IV PRN (16:15)
[2019-01-30] MEDS ORDERED: SODIUM CHLORIDE 0.45% 750 ML IV ONE (16:15)
[2019-01-30] MEDS ORDERED: ONDANSETRON HCL 4MG/2ML INJ IV PRN (16:15)
[2019-01-30] MEDS ORDERED: ACETAMINOPHEN 325MG TABLET PO PRN (16:15)
[2019-01-30] MEDS ORDERED: MORPHINE SULFATE 2 MG/ML CPJ (NOT FOR IM USE) IV PRN (16:15)
[2019-01-30] MEDS: ACETYLCYSTEINE 100MG/ML 10% VIAL 4ML INH SCH (16:40)
[2019-01-30] MEDS: VANCOMYCIN 1,500 MG in DEXT 5% WATER 250 ML IV SCH (21:16)
[2019-01-31] VITALS (12 sets, daily range): BP systolic 95–145; BP diastolic 34–88
[2019-01-31] MEDS: ACETYLCYSTEINE 100MG/ML 10% VIAL 4ML INH SCH ×4 (00:30→23:57)
[2019-01-31] MEDS: IPRATROPIUM/ALBUTEROL 0.5-3(2.5)MG/3ML NEB HHN SCH ×6 (00:30→23:56)
[2019-01-31] MEDS: GUAIFENESIN 200MG/10ML SUGAR FREE UDC PO PRN ×3 (01:21→20:40)
[2019-01-31] MEDS: VANCOMYCIN 1,500 MG in DEXT 5% WATER 250 ML IV SCH (04:11)
[2019-01-31] MEDS: ACETAMINOPHEN 325MG TABLET PO PRN (04:40)
[2019-01-31] MEDS: OMEPRAZOLE 20MG CAPSULE EXTENDED RELEASE PO SCH (05:50)
[2019-01-31] MEDS: LORAZEPAM 0.5MG TABLET PO PRN ×2 (05:50→21:21)
[2019-01-31] MEDS: NYSTATIN 100,000 UNITS/ML 5ML UDC SSW SCH ×3 (05:50→17:11)
[2019-01-31] MEDS: SYMBICORT 160/4.5 INHALER PO SCH ×2 (05:51→17:11)
[2019-01-31 06:37] LABS: BASOPHILS % 1.1 % (0.0-2.0); HEMATOCRIT. 24.5 % (42.0-52.0); HEMOGLOBIN. 8.2 g/dL (14.0-18.0); LYMPHOCYTES % 7.8 % (20.0-50.0); MEAN CORPUSCULAR HEMOGLOBIN 36.1 pg (28.0-32.0); MEAN CORPUSCULAR VOLUME 107.4 fL (80.0-94.0); MONOCYTES % 8.3 % (2.0-8.0); NEUTROPHILS % 80.8 % (40.0-76.0); PLATELET 141 x1000/uL (130-400); RED BLOOD CELL COUNT 2.28 mill/uL (4.7-6.1); RED CELL DISTRIBUTION WIDTH 20.3 % (11.6-14.6)
[2019-01-31 06:46] LABS: CHLORIDE 99 mEq/L (98-107)
[2019-01-31 06:56] LABS: PHOSPHORUS 2.6 mg/dL (2.5-4.9)
[2019-01-31] MEDS ORDERED: NON FORMULARY PATIENT HOME MED XX SCH (08:15)
[2019-01-31] MEDS ORDERED: MAGNESIUM 1 G PREMIX 100 ML IV NR (08:30)
[2019-01-31] MEDS: NICOTINE 21MG PATCH TD SCH (08:41)
[2019-01-31] MEDS: FERROUS SULFATE 325MG TABLET PO SCH ×3 (08:41→17:11)
[2019-01-31] MEDS: FUROSEMIDE 20MG/2ML VIAL IVP SCH (08:41)
[2019-01-31] MEDS: GUAIFENESIN 600MG ER TABLET PO SCH ×2 (08:41→21:21)
[2019-01-31] MEDS: CEFEPIME 1,000 MG in DEXTROSE 5% WATER 50 ML IV SCH ×2 (08:41→21:22)
[2019-01-31] MEDS: FAMOTIDINE 20MG TABLET PO SCH ×2 (08:41→21:21)
[2019-01-31] MEDS: ENOXAPARIN 40MG/0.4ML SYR SUBCUT SCH ×2 (09:30→09:44)
[2019-01-31 09:44] LABS: TOTAL IRON BINDING CAPACITY 132 ug/dL (250-450)
[2019-01-31] MEDS: GUAIFENESIN/CODEINE 100-10MG/5ML UDC PO PRN (12:20)
[2019-01-31] MEDS ORDERED: NICOTINE 21MG PATCH TD NR (16:30)
[2019-01-31] MEDS: VANCOMYCIN 1250MG in DEXTROSE 5% WATER 250ML IV SCH (17:11)
[2019-02-01] VITALS (8 sets, daily range): BP systolic 98–128; BP diastolic 55–95
[2019-02-01] MEDS: NYSTATIN 100,000 UNITS/ML 5ML UDC SSW SCH ×4 (00:17→18:00)
[2019-02-01] MEDS: GUAIFENESIN 200MG/10ML SUGAR FREE UDC PO PRN ×2 (00:59→05:11)
[2019-02-01] MEDS: IPRATROPIUM/ALBUTEROL 0.5-3(2.5)MG/3ML NEB HHN SCH ×5 (04:12→20:45)
[2019-02-01] MEDS: SYMBICORT 160/4.5 INHALER PO SCH ×3 (05:27→20:20)
[2019-02-01] MEDS: VANCOMYCIN 1250MG in DEXTROSE 5% WATER 250ML IV SCH (05:28)
[2019-02-01] MEDS: FERROUS SULFATE 325MG TABLET PO SCH ×3 (06:30→18:10)
[2019-02-01] MEDS: LORAZEPAM 0.5MG TABLET PO PRN ×2 (06:30→15:08)
[2019-02-01 07:42] LABS: BASOPHILS % 1.2 % (0.0-2.0); EOSINOPHILS % 2.9 % (0.0-5.0); HEMATOCRIT. 25.3 % (42.0-52.0); HEMOGLOBIN. 8.5 g/dL (14.0-18.0); LYMPHOCYTES % 10.9 % (20.0-50.0); MEAN CORPUSCULAR HEMOGLOBIN 35.8 pg (28.0-32.0); MEAN CORPUSCULAR VOLUME 107.1 fL (80.0-94.0); MEAN PLATELET VOLUME 9.1 fl (7.4-10.4); MONOCYTES % 8.8 % (2.0-8.0); NEUTROPHILS % 76.2 % (40.0-76.0); PLATELET 138 x1000/uL (130-400); RED BLOOD CELL COUNT 2.36 mill/uL (4.7-6.1); RED CELL DISTRIBUTION WIDTH 20.4 % (11.6-14.6)
[2019-02-01 07:53] LABS: CHLORIDE 99 mEq/L (98-107)
[2019-02-01] MEDS: ENOXAPARIN 40MG/0.4ML SYR SUBCUT SCH (09:00)
[2019-02-01] MEDS: FUROSEMIDE 20MG/2ML VIAL IVP SCH ×2 (09:00→09:02)
[2019-02-01] MEDS: GUAIFENESIN/CODEINE 100-10MG/5ML UDC PO PRN ×2 (09:02→20:15)
[2019-02-01] MEDS: CEFEPIME 1,000 MG in DEXTROSE 5% WATER 50 ML IV SCH (09:02)
[2019-02-01] MEDS: NICOTINE 21MG PATCH TD SCH (09:02)
[2019-02-01] MEDS: FAMOTIDINE 20MG TABLET PO SCH ×2 (09:02→20:16)
[2019-02-01] MEDS: GUAIFENESIN 600MG ER TABLET PO SCH ×2 (09:02→20:16)
[2019-02-01] MEDS: ACETYLCYSTEINE 100MG/ML 10% VIAL 4ML INH SCH ×2 (09:15→15:29)
[2019-02-01] MEDS: ACETAMINOPHEN 325MG TABLET PO PRN ×2 (14:40→20:16)
[2019-02-01] MEDS: PIPERACILLIN/TAZ 3.375G PREMIX 50 ML IV SCH (18:00)
[2019-02-01] MEDS ORDERED: PIPERACILLIN/TAZOBACTAM 3.375 G in DEXT 5% WATER 100 ML IV SCH (18:00)
[2019-02-01] MEDS: DOXYCYCLINE HYCLATE 100MG CAPSULE PO SCH (20:16)
[2019-02-01] MEDS: MICONAZOLE NITRATE 2% OINT 71GM TOP SCH (20:17)
[2019-02-02] VITALS: BP 110/68
[2019-02-02] MEDS: NYSTATIN 100,000 UNITS/ML 5ML UDC SSW SCH ×5 (00:42→23:59)
[2019-02-02] MEDS: LORAZEPAM 0.5MG TABLET PO PRN ×3 (00:42→21:21)
[2019-02-02] MEDS: IPRATROPIUM/ALBUTEROL 0.5-3(2.5)MG/3ML NEB HHN SCH ×5 (01:25→23:30)
[2019-02-02 04:00] VITALS: BP 126/78
[2019-02-02 05:51] LABS: CHLORIDE 101 mEq/L (98-107)
[2019-02-02] MEDS: PIPERACILLIN/TAZ 3.375G PREMIX 50 ML IV SCH ×4 (06:00→23:59)
[2019-02-02 06:25] LABS: BASOPHILS % 1.3 % (0.0-2.0); EOSINOPHILS % 3.8 % (0.0-5.0); HEMATOCRIT. 23.8 % (42.0-52.0); HEMOGLOBIN. 8.1 g/dL (14.0-18.0); LYMPHOCYTES % 16.2 % (20.0-50.0); MEAN CORPUSCULAR HEMOGLOBIN 36.4 pg (28.0-32.0); MEAN CORPUSCULAR VOLUME 106.8 fL (80.0-94.0); MEAN PLATELET VOLUME 8.9 fl (7.4-10.4); MONOCYTES % 9.5 % (2.0-8.0); NEUTROPHILS % 69.2 % (40.0-76.0); PLATELET 135 x1000/uL (130-400); RED BLOOD CELL COUNT 2.23 mill/uL (4.7-6.1); RED CELL DISTRIBUTION WIDTH 20.3 % (11.6-14.6)
[2019-02-02] MEDS: SYMBICORT 160/4.5 INHALER PO SCH (06:38)
[2019-02-02 08:00] VITALS: BP 120/73
[2019-02-02] MEDS: ACETYLCYSTEINE 100MG/ML 10% VIAL 4ML INH SCH ×2 (08:40→23:30)
[2019-02-02] MEDS: ENOXAPARIN 40MG/0.4ML SYR SUBCUT SCH (09:00)
[2019-02-02] MEDS: MICONAZOLE NITRATE 2% OINT 71GM TOP SCH ×2 (09:35→21:00)
[2019-02-02] MEDS: FLUTICASONE PROPIONATE 50MCG/SPRAY BOTTLE BOTHNSTRLS SCH (09:35)
[2019-02-02] MEDS: FAMOTIDINE 20MG TABLET PO SCH ×2 (09:36→21:15)
[2019-02-02] MEDS: FLUOXETINE HCL 20MG CAPSULE PO SCH (09:37)
[2019-02-02] MEDS: DOXYCYCLINE HYCLATE 100MG CAPSULE PO SCH ×2 (09:37→21:15)
[2019-02-02] MEDS: FERROUS SULFATE 325MG TABLET PO SCH ×3 (09:37→18:41)
[2019-02-02] MEDS: GUAIFENESIN 600MG ER TABLET PO SCH ×2 (09:37→21:14)
[2019-02-02] MEDS: NICOTINE 21MG PATCH TD SCH (09:37)
[2019-02-02 12:00] VITALS: BP 118/79
[2019-02-02] MEDS: GUAIFENESIN/CODEINE 100-10MG/5ML UDC PO PRN ×2 (12:16→23:59)
[2019-02-02 16:00] VITALS: BP 99/69
[2019-02-02 20:00] VITALS: BP 106/70
[2019-02-03] VITALS: BP 105/66
[2019-02-03 04:00] VITALS: BP 113/63
[2019-02-03] MEDS: IPRATROPIUM/ALBUTEROL 0.5-3(2.5)MG/3ML NEB HHN SCH ×3 (04:05→20:49)
[2019-02-03] MEDS: PIPERACILLIN/TAZ 3.375G PREMIX 50 ML IV SCH ×4 (06:04→23:57)
[2019-02-03] MEDS: NYSTATIN 100,000 UNITS/ML 5ML UDC SSW SCH ×4 (06:04→23:57)
[2019-02-03] MEDS: SYMBICORT 160/4.5 INHALER PO SCH ×2 (06:04→17:35)
[2019-02-03] MEDS: ACETYLCYSTEINE 100MG/ML 10% VIAL 4ML INH SCH (08:00)
[2019-02-03 08:05] VITALS: BP 100/66
[2019-02-03] MEDS: FAMOTIDINE 20MG TABLET PO SCH ×2 (08:51→20:52)
[2019-02-03] MEDS: LORAZEPAM 0.5MG TABLET PO PRN ×2 (08:51→17:43)
[2019-02-03] MEDS: GUAIFENESIN 600MG ER TABLET PO SCH ×2 (08:51→20:52)
[2019-02-03] MEDS: FLUTICASONE PROPIONATE 50MCG/SPRAY BOTTLE BOTHNSTRLS SCH (08:51)
[2019-02-03] MEDS: FLUOXETINE HCL 20MG CAPSULE PO SCH (08:51)
[2019-02-03] MEDS: DOXYCYCLINE HYCLATE 100MG CAPSULE PO SCH ×2 (08:51→20:52)
[2019-02-03] MEDS: FERROUS SULFATE 325MG TABLET PO SCH ×3 (08:51→17:34)
[2019-02-03] MEDS: MICONAZOLE NITRATE 2% OINT 71GM TOP SCH ×2 (08:51→20:53)
[2019-02-03 08:53] LABS: BASOPHILS % 1.1 % (0.0-2.0); HEMATOCRIT. 25.9 % (42.0-52.0); HEMOGLOBIN. 8.6 g/dL (14.0-18.0); MEAN CORPUSCULAR HEMOGLOBIN 35.4 pg (28.0-32.0); MEAN CORPUSCULAR VOLUME 106.6 fL (80.0-94.0); MEAN PLATELET VOLUME 8.5 fl (7.4-10.4); MONOCYTES % 7.3 % (2.0-8.0); NEUTROPHILS % 75.6 % (40.0-76.0); PLATELET 165 x1000/uL (130-400); RED BLOOD CELL COUNT 2.43 mill/uL (4.7-6.1); RED CELL DISTRIBUTION WIDTH 19.6 % (11.6-14.6)
[2019-02-03] MEDS: NICOTINE 21MG PATCH TD SCH (08:55)
[2019-02-03] MEDS: ENOXAPARIN 40MG/0.4ML SYR SUBCUT SCH (09:00)
[2019-02-03 09:30] LABS: CHLORIDE 100 mEq/L (98-107)
[2019-02-03 12:47] VITALS: BP 91/56
[2019-02-03] MEDS: GUAIFENESIN/CODEINE 100-10MG/5ML UDC PO PRN (13:41)
[2019-02-03 16:40] VITALS: BP 103/57
[2019-02-03 20:00] VITALS: BP 112/74
[2019-02-04] VITALS: BP 92/57
[2019-02-04] MEDS: GUAIFENESIN/CODEINE 100-10MG/5ML UDC PO PRN (00:31)
[2019-02-04] MEDS: IPRATROPIUM/ALBUTEROL 0.5-3(2.5)MG/3ML NEB HHN SCH ×8 (00:47→23:30)
[2019-02-04] MEDS: ACETYLCYSTEINE 100MG/ML 10% VIAL 4ML INH SCH ×4 (00:47→19:57)
[2019-02-04 04:00] VITALS: BP 135/52
[2019-02-04] MEDS: LORAZEPAM 0.5MG TABLET PO PRN ×3 (04:37→21:59)
[2019-02-04] MEDS: PIPERACILLIN/TAZ 3.375G PREMIX 50 ML IV SCH ×3 (05:24→18:01)
[2019-02-04] MEDS: NYSTATIN 100,000 UNITS/ML 5ML UDC SSW SCH ×3 (05:24→18:00)
[2019-02-04] MEDS: SYMBICORT 160/4.5 INHALER PO SCH ×2 (05:24→18:00)
[2019-02-04 06:58] LABS: BASOPHILS % 2.4 % (0.0-2.0); EOSINOPHILS % 3.9 % (0.0-5.0); HEMATOCRIT. 25.3 % (42.0-52.0); HEMOGLOBIN. 8.4 g/dL (14.0-18.0); LYMPHOCYTES % 13.9 % (20.0-50.0); MEAN CORPUSCULAR HEMOGLOBIN 35.4 pg (28.0-32.0); MEAN CORPUSCULAR VOLUME 107.2 fL (80.0-94.0); MONOCYTES % 6.8 % (2.0-8.0); PLATELET 178 x1000/uL (130-400); RED BLOOD CELL COUNT 2.36 mill/uL (4.7-6.1); RED CELL DISTRIBUTION WIDTH 19.8 % (11.6-14.6)
[2019-02-04 08:00] VITALS: BP 105/64
[2019-02-04] MEDS: ENOXAPARIN 40MG/0.4ML SYR SUBCUT SCH (08:42)
[2019-02-04] MEDS: FERROUS SULFATE 325MG TABLET PO SCH ×3 (08:43→18:00)
[2019-02-04] MEDS: DOXYCYCLINE HYCLATE 100MG CAPSULE PO SCH ×2 (08:43→21:54)
[2019-02-04] MEDS: FAMOTIDINE 20MG TABLET PO SCH ×2 (08:43→21:54)
[2019-02-04] MEDS: FLUOXETINE HCL 20MG CAPSULE PO SCH (08:43)
[2019-02-04] MEDS: GUAIFENESIN 600MG ER TABLET PO SCH ×2 (08:44→21:54)
[2019-02-04] MEDS: FLUTICASONE PROPIONATE 50MCG/SPRAY BOTTLE BOTHNSTRLS SCH (08:44)
[2019-02-04] MEDS: NICOTINE 21MG PATCH TD SCH (08:45)
[2019-02-04] MEDS: MICONAZOLE NITRATE 2% OINT 71GM TOP SCH ×2 (08:45→21:54)
[2019-02-04 09:05] LABS: CHLORIDE 102 mEq/L (98-107)
[2019-02-04 12:00] VITALS: BP 110/55
[2019-02-04 13:49] LABS: PROSTRATE SPECIFIC AG TOTAL 0.32 ng/mL (0.0-4.0)
[2019-02-04 13:50] LABS: CARCINO EMBRYONIC ANTIGEN 3.8 ng/ml
[2019-02-04 14:15] LABS: HEPATITIS B SURFACE ANTIGEN NEGATIVE
[2019-02-04 14:35] LABS: HEPATITIS A AB IGM NEGATIVE (NEGATIVE)
[2019-02-04 15:28] VITALS: BP 118/93
[2019-02-04 20:00] VITALS: BP 128/77
[2019-02-05] MEDS: PIPERACILLIN/TAZ 3.375G PREMIX 50 ML IV SCH ×5 (00:59→23:59)
[2019-02-05 04:00] VITALS: BP 106/65
[2019-02-05] MEDS: IPRATROPIUM/ALBUTEROL 0.5-3(2.5)MG/3ML NEB HHN SCH ×6 (04:29→23:39)
[2019-02-05 05:13] LABS: HIV SCREEN 4G Non Reactive (Non Reactive)
[2019-02-05] MEDS: SYMBICORT 160/4.5 INHALER PO SCH ×2 (05:42→18:17)
[2019-02-05 07:07] LABS: BASOPHILS % 1.4 % (0.0-2.0); EOSINOPHILS % 3.9 % (0.0-5.0); HEMATOCRIT. 25.1 % (42.0-52.0); HEMOGLOBIN. 8.4 g/dL (14.0-18.0); LYMPHOCYTES % 15.8 % (20.0-50.0); MEAN CORPUSCULAR HEMOGLOBIN 35.3 pg (28.0-32.0); MEAN CORPUSCULAR VOLUME 105.5 fL (80.0-94.0); MEAN PLATELET VOLUME 8.6 fl (7.4-10.4); MONOCYTES % 6.1 % (2.0-8.0); NEUTROPHILS % 72.8 % (40.0-76.0); PLATELET 181 x1000/uL (130-400); RED BLOOD CELL COUNT 2.38 mill/uL (4.7-6.1); RED CELL DISTRIBUTION WIDTH 19.7 % (11.6-14.6)
[2019-02-05 07:17] LABS: CHLORIDE 102 mEq/L (98-107)
[2019-02-05 08:00] VITALS: BP 140/86
[2019-02-05] MEDS: FAMOTIDINE 20MG TABLET PO SCH ×2 (08:53→21:05)
[2019-02-05] MEDS: DOXYCYCLINE HYCLATE 100MG CAPSULE PO SCH ×2 (08:53→21:05)
[2019-02-05] MEDS: NICOTINE 21MG PATCH TD SCH (08:53)
[2019-02-05] MEDS: FLUOXETINE HCL 20MG CAPSULE PO SCH (08:54)
[2019-02-05] MEDS: FERROUS SULFATE 325MG TABLET PO SCH ×3 (08:54→17:57)
[2019-02-05] MEDS: GUAIFENESIN 600MG ER TABLET PO SCH ×2 (08:54→21:05)
[2019-02-05] MEDS: ENOXAPARIN 40MG/0.4ML SYR SUBCUT SCH (09:00)
[2019-02-05] MEDS: MICONAZOLE NITRATE 2% OINT 71GM TOP SCH ×2 (09:00→21:07)
[2019-02-05] MEDS: LORAZEPAM 0.5MG TABLET PO PRN ×2 (09:08→17:57)
[2019-02-05] MEDS ORDERED: POTASSIUM CHLORIDE 20MEQ TABLET SR PO NR (11:15)
[2019-02-05 12:00] VITALS: BP 138/79
[2019-02-05 16:00] VITALS: BP 117/82
[2019-02-05 20:00] VITALS: BP 135/86
[2019-02-05] MEDS: GUAIFENESIN/CODEINE 100-10MG/5ML UDC PO PRN (21:11)
[2019-02-06] VITALS: BP 148/88
[2019-02-06 04:00] VITALS: BP 132/80
[2019-02-06] MEDS: PIPERACILLIN/TAZ 3.375G PREMIX 50 ML IV SCH ×3 (05:17→12:44)
[2019-02-06] MEDS: ACETAMINOPHEN 325MG TABLET PO PRN (05:17)
[2019-02-06 07:20] LABS: CHLORIDE 102 mEq/L (98-107)
[2019-02-06 07:29] LABS: BASOPHILS % 1.8 % (0.0-2.0); EOSINOPHILS % 3.9 % (0.0-5.0); HEMATOCRIT. 25.7 % (42.0-52.0); HEMOGLOBIN. 8.6 g/dL (14.0-18.0); LYMPHOCYTES % 16.9 % (20.0-50.0); MEAN CORPUSCULAR HEMOGLOBIN 35.5 pg (28.0-32.0); MEAN PLATELET VOLUME 8.2 fl (7.4-10.4); MONOCYTES % 5.8 % (2.0-8.0); NEUTROPHILS % 71.6 % (40.0-76.0); PLATELET 191 x1000/uL (130-400); RED BLOOD CELL COUNT 2.42 mill/uL (4.7-6.1); RED CELL DISTRIBUTION WIDTH 19.7 % (11.6-14.6)
[2019-02-06 08:00] VITALS: BP 143/80
[2019-02-06] MEDS: IPRATROPIUM/ALBUTEROL 0.5-3(2.5)MG/3ML NEB HHN SCH ×2 (08:32→13:43)
[2019-02-06] MEDS: DOXYCYCLINE HYCLATE 100MG CAPSULE PO SCH (08:59)
[2019-02-06] MEDS: FAMOTIDINE 20MG TABLET PO SCH (08:59)
[2019-02-06] MEDS: FLUOXETINE HCL 20MG CAPSULE PO SCH (08:59)
[2019-02-06] MEDS: FERROUS SULFATE 325MG TABLET PO SCH ×2 (08:59→12:46)
[2019-02-06] MEDS: GUAIFENESIN 600MG ER TABLET PO SCH (08:59)
[2019-02-06] MEDS: LORAZEPAM 0.5MG TABLET PO PRN (09:00)
[2019-02-06] MEDS: ENOXAPARIN 40MG/0.4ML SYR SUBCUT SCH (09:00)
[2019-02-06] MEDS: GUAIFENESIN/CODEINE 100-10MG/5ML UDC PO PRN (09:00)
[2019-02-06] MEDS: NICOTINE 21MG PATCH TD SCH (09:02)
[2019-02-06] MEDS: MICONAZOLE NITRATE 2% OINT 71GM TOP SCH (09:04)
[2019-02-06] MEDS: SYMBICORT 160/4.5 INHALER PO SCH (09:04)
[2019-02-06] MEDS ORDERED: POTASSIUM CHLORIDE 20MEQ TABLET SR PO NR (11:45)
[2019-02-06 12:00] VITALS: BP 139/88
[2019-02-06 14:32] VITALS: BP 139/88
== END 2019-02-06 16:45 | disposition home or self-care (01) | DRG 871 ==
LOC: 5WST 20:37 → 3WST 01-30 18:15 → 7WST 02-01 13:43
PROVIDERS: ADMIT Family Medicine Adult Medicine; ATTEND Family Medicine Adult Medicine
PROC: 0W9B3ZZ Drainage of Left Pleural Cavity, Percutaneous Approach (ICD-10-PCS; 2019-01-29)
PROC: 4A023N7 Measurement of Cardiac Sampling and Pressure, Left Heart, Percutaneous Approach (ICD-10-PCS; principal; 2019-01-30)
PROC: B2151ZZ Fluoroscopy of Left Heart using Low Osmolar Contrast (ICD-10-PCS; 2019-01-30)
PROC: B2111ZZ Fluoroscopy of Multiple Coronary Arteries using Low Osmolar Contrast (ICD-10-PCS; 2019-01-30)
PROC: 5A09357 Assistance with Respiratory Ventilation, Less than 24 Consecutive Hours, Continuous Positive Airway Pressure (ICD-10-PCS; 2019-01-31)
PROC: 5A09357 Assistance with Respiratory Ventilation, Less than 24 Consecutive Hours, Continuous Positive Airway Pressure (ICD-10-PCS; 2019-02-01)
PROC: 5A09357 Assistance with Respiratory Ventilation, Less than 24 Consecutive Hours, Continuous Positive Airway Pressure (ICD-10-PCS; 2019-02-04)
DX: A41.9 Sepsis, unspecified organism (principal); J96.00 Acute respiratory failure, unspecified whether with hypoxia or hypercapnia; E43 Unspecified severe protein-calorie malnutrition; J18.9 Pneumonia, unspecified organism; I31.3 Pericardial effusion (noninflammatory); J94.2 Hemothorax; R18.8 Other ascites; B37.0 Candidal stomatitis; J44.0 Chronic obstructive pulmonary disease with (acute) lower respiratory infection; J91.8 Pleural effusion in other conditions classified elsewhere; J98.11 Atelectasis; E83.42 Hypomagnesemia; F17.210 Nicotine dependence, cigarettes, uncomplicated; I10 Essential (primary) hypertension; E87.70 Fluid overload, unspecified; D50.9 Iron deficiency anemia, unspecified; F32.9 Major depressive disorder, single episode, unspecified; F10.10 Alcohol abuse, uncomplicated; I95.9 Hypotension, unspecified; F41.9 Anxiety disorder, unspecified; K21.9 Gastro-esophageal reflux disease without esophagitis; K74.60 Unspecified cirrhosis of liver; L30.4 Erythema intertrigo; Z22.322 Carrier or suspected carrier of Methicillin resistant Staphylococcus aureus; Z82.49 Family history of ischemic heart disease and other diseases of the circulatory system; Z68.21 Body mass index [BMI] 21.0-21.9, adult
CPT/HCPCS: 32555; 36415; 36600; 71045; 76700; 80048; 80061; 80202; 80305; 82040; 82105; 82270; 82375; 82378; 82550; 82553; 82805; 83540; 83550; 83605; 83615; 83735; 83880; 84100; 84134; 84145; 84153; 84443; 84484; 85379; 86705; 86709; 86803; 87070; 87340; 87389; 88108; 88312; 93005; 93306; 93458; 93970; 94640; 94660; 97110; 97162; 97166; 97530; 97535; A6261; C1760; C1769; C1893; J0456; J0692; J0696; J1644; J1650; J1940; J2250; J2543; J3010; J3370; J3475; J3490; J7040; J7050; J7060; J7608; J7620; Q9967; G0103

== ENCOUNTER 2019-08-13 21:38 | Inpatient (IN) | payer BC ==
[~2019-08-13] VITALS: Ht 191.8 cm; Wt 82.6 kg
[2019-08-13 20:45] VITALS: BP 96/46
[~2019-08-13 21:38] MED LIST: ALBU05 NEB; BUDE6HFA INH; FERR324T4 MT; FOLI-43 MT; LORA-249 MT; P20 MT; PANT40TA4 MT; TOPUD MT
[2019-08-13] MEDS ORDERED: LORA2TAB95 PO (21:52)
[2019-08-13] MEDS ORDERED: LANS15CA12 PO (21:52)
[2019-08-13] MEDS ORDERED: IPRATROPIUM/ALBUTEROL 0.5-3(2.5)MG/3ML NEB HHN PRN (22:00)
[2019-08-14] VITALS: BP 97/58
[2019-08-14] MEDS: LORAZEPAM 0.5MG TABLET PO PRN ×3 (00:08→21:33)
[2019-08-14 04:00] VITALS: BP 95/59
[2019-08-14] MEDS: PANTOPRAZOLE 40MG DR TABLET PO SCH (06:35)
[2019-08-14 08:00] VITALS: BP 96/51
[2019-08-14 08:15] LABS: HEMATOCRIT 30.7 % (42.0-52.0); HEMOGLOBIN 10.5 g/dL (14.0-18.0); MEAN CORPUSCULAR HEMOGLOBIN 33.1 pg (28.0-32.0); MEAN CORPUSCULAR VOLUME 97.2 fL (80.0-94.0); PLATELET 129 x1000/uL (130-400); RED BLOOD CELL COUNT 3.16 mill/uL (4.7-6.1); RED CELL DISTRIBUTION WIDTH 17.8 % (11.6-14.6)
[2019-08-14 08:27] LABS: CHLORIDE 102 mEq/L (98-107)
[2019-08-14 08:29] LABS: PARTIAL THROMBOPLASTIN TIME 30.1 sec (23.4-31.0); PROTHROMBIN TIME 10.7 sec (9.6-11.0)
[2019-08-14 11:27] VITALS: BP 94/57
[2019-08-14] MEDS ORDERED: IPRATROPIUM/ALBUTEROL 0.5-3(2.5)MG/3ML NEB HHN PRN (15:30)
[2019-08-14] MEDS ORDERED: LIDOCAINE HCL 1% 20ML VIAL (Pyxis) INJ ONE (16:02)
[2019-08-14] MEDS ORDERED: SODIUM BICARBONATE 4% (2.4MEQ) 5ML VIAL IV ONE (16:02)
[2019-08-14 16:12] VITALS: BP 100/67
[2019-08-14 20:00] VITALS: BP 100/59
[2019-08-14] MEDS: BUDESONIDE 0.5MG/2ML NEB HHN SCH (20:31)
[2019-08-14] MEDS: IPRATROPIUM/ALBUTEROL 0.5-3(2.5)MG/3ML NEB HHN SCH (20:31)
[2019-08-15] VITALS (62 sets, daily range): BP systolic 0–149; BP diastolic 0–80
[2019-08-15] MEDS: IPRATROPIUM/ALBUTEROL 0.5-3(2.5)MG/3ML NEB HHN SCH ×4 (02:16→20:37)
[2019-08-15 06:26] LABS: BASOPHILS % 0.7 % (0.0-2.0); HEMATOCRIT. 31.9 % (42.0-52.0); HEMOGLOBIN. 10.7 g/dL (14.0-18.0); LYMPHOCYTES % 10.6 % (20.0-50.0); MEAN CORPUSCULAR HEMOGLOBIN 32.4 pg (28.0-32.0); MEAN CORPUSCULAR VOLUME 96.9 fL (80.0-94.0); MEAN PLATELET VOLUME 8.3 fl (7.4-10.4); MONOCYTES % 5.2 % (2.0-8.0); NEUTROPHILS % 82.5 % (40.0-76.0); PLATELET 133 x1000/uL (130-400); RED BLOOD CELL COUNT 3.29 mill/uL (4.7-6.1); RED CELL DISTRIBUTION WIDTH 17.9 % (11.6-14.6)
[2019-08-15 06:28] LABS: INR 1.1; PROTHROMBIN TIME 11.3 sec (9.6-11.0)
[2019-08-15 06:51] LABS: CHLORIDE 101 mEq/L (98-107)
[2019-08-15] MEDS ORDERED: TETRACAINE/BENZOCAINE/BUTAMBEN 20 GM SPRAY MM ONE (06:58)
[2019-08-15] MEDS ORDERED: SKIN ADHESIVE 0.7 GM EA TOP ONE (07:00)
[2019-08-15] MEDS ORDERED: BACITRACIN 50,000 UNITS/VIAL ONE (07:00)
[2019-08-15] MEDS ORDERED: BUPIVACAINE HCL/EPINEPHRINE/PF 0.5%/0.0005 10ML ONE (07:00)
[2019-08-15] MEDS ORDERED: BUPIVACAINE HCL/PF 0.25% (2.5MG/ML) 10ML ONE (07:18)
[2019-08-15] MEDS ORDERED: TALC 3 GM VIAL IX PRN (07:30)
[2019-08-15] MEDS ORDERED: FENTANYL CITRATE/PF 50MCG/ML 2ML VIAL ONE (07:41)
[2019-08-15] MEDS ORDERED: NEOSTIGMINE METHYLSULFATE 1MG/ML 10 ML VIAL ONE (07:41)
[2019-08-15] MEDS ORDERED: ROCURONIUM BROMIDE 10MG/ML VIAL 5ML IV ONE (07:41)
[2019-08-15] MEDS ORDERED: MIDAZOLAM HCL 2 MG/2 ML VIAL ONE (07:41)
[2019-08-15] MEDS ORDERED: PROPOFOL 200MG/20ML VIAL IV ONE (07:41)
[2019-08-15] MEDS ORDERED: GLYCOPYRROLATE 0.2 MG/ML 2ML VIAL ONE ×2 (07:41→09:32)
[2019-08-15] MEDS ORDERED: DEXAMETHASONE 4MG/ML 1ML VIAL ONE (07:45)
[2019-08-15] MEDS ORDERED: ONDANSETRON HCL 4MG/2ML INJ ONE (07:46)
[2019-08-15] MEDS: PANTOPRAZOLE 40MG DR TABLET PO SCH (08:00)
[2019-08-15] MEDS: BUDESONIDE 0.5MG/2ML NEB HHN SCH ×3 (09:30→20:36)
[2019-08-15 10:20] LABS: BG BASE EXCESS -2.8 mmol/L (-2.0-2.0); BG CARBOXYHEMOGLOBIN 0.6 % (0.5-1.5); BG DEOXYHEMOGLOBIN 0.4 % (0.0-5.0); BG FRACTION INSPIRED OXYGEN 100; BG HCO3 ACT 26.1 mmol/L (22.0-26.0); BG METHEMOGLOBIN 0.4 % (0.0-1.5); BG OXYGEN SATURATION 99.6 % (92.0-98.5); BG OXYHEMOGLOBIN 98.6 % (94.0-97.0); BG PCO2 66.4 mmHg (35.0-45.0); BG PH 7.212 (7.350-7.450); BG PO2 417.7 mmHg (75.0-100.0); BG SAMPLE SITE A-LINE; BG TIDAL VOLUME(mL) 500 mL; BG VENT MODE VENT - A/C; BG VENT RATE 12 set
[2019-08-15] MEDS ORDERED: PROPOFOL 10MG/ML 100ML 100 ML IV PRN (10:30)
[2019-08-15] MEDS ORDERED: HYDROMORPHONE HCL/PF 2MG/ML CPJ IV PRN (10:30)
[2019-08-15 10:49] LABS: HEMATOCRIT. 34.3 % (42.0-52.0); HEMOGLOBIN. 11.5 g/dL (14.0-18.0); MEAN CORPUSCULAR HEMOGLOBIN 32.5 pg (28.0-32.0); MEAN CORPUSCULAR VOLUME 97.2 fL (80.0-94.0); PLATELET 143 x1000/uL (130-400); RED BLOOD CELL COUNT 3.53 mill/uL (4.7-6.1)
[2019-08-15 10:51] LABS: CHLORIDE 104 mEq/L (98-107)
[2019-08-15 10:57] LABS: INR 1.1; PARTIAL THROMBOPLASTIN TIME 33.3 sec (23.4-31.0); PROTHROMBIN TIME 11.2 sec (9.6-11.0)
[2019-08-15 11:34] LABS: PLATELET ESTIMATE NORMAL
[2019-08-15] MEDS ORDERED: SODIUM CHLORIDE 0.9% 250 ML IV ONE (12:15)
[2019-08-15 12:18] LABS: BG BASE EXCESS -5.3 mmol/L (-2.0-2.0); BG CARBOXYHEMOGLOBIN 0.3 % (0.5-1.5); BG DEOXYHEMOGLOBIN 6.4 % (0.0-5.0); BG FRACTION INSPIRED OXYGEN 40; BG HCO3 ACT 21.4 mmol/L (22.0-26.0); BG OXYGEN SATURATION 93.6 % (92.0-98.5); BG OXYHEMOGLOBIN 93.3 % (94.0-97.0); BG PH 7.277 (7.350-7.450); BG PO2 80.7 mmHg (75.0-100.0); BG SAMPLE SITE A-LINE; BG TIDAL VOLUME(mL) 500 mL; BG TOTAL HEMOGLOBIN 10.9 g/dL (12.0-18.0); BG VENT MODE VENT - A/C; BG VENT RATE 16 set
[2019-08-15] MEDS ORDERED: SODIUM CHLORIDE 0.9% 500 ML IV ONE ×2 (13:15→16:45)
[2019-08-15] MEDS ORDERED: MIDAZOLAM HCL 50 MG in DEXTROSE 5% WATER 40 ML IV PRN (13:45)
[2019-08-15] MEDS ORDERED: SODIUM CHLORIDE 0.9% 1,000 ML IV SCH (14:15)
[2019-08-15] MEDS ORDERED: HYDROMORPHONE HCL/PF 2MG/ML CPJ IV SCH (14:45)
[2019-08-15] MEDS: FENTANYL CITRATE/PF 500 MCG in SODIUM CHLORIDE 0.9% 40 ML IV PRN ×2 (16:06→21:21)
[2019-08-15] MEDS: DEXT 5%/0.9% NACL 1,000 ML IV SCH (18:03)
[2019-08-15] MEDS: HYDROMORPHONE HCL/PF 2MG/ML CPJ IV PRN (23:34)
[2019-08-16] VITALS (78 sets, daily range): BP systolic 80–133; BP diastolic 49–81
[2019-08-16] MEDS: IPRATROPIUM/ALBUTEROL 0.5-3(2.5)MG/3ML NEB HHN SCH ×4 (01:45→20:28)
[2019-08-16] MEDS: DEXT 5%/0.9% NACL 1,000 ML IV SCH ×2 (05:09→18:13)
[2019-08-16 06:59] LABS: BASOPHILS % 0.2 % (0.0-2.0); EOSINOPHILS % 0.3 % (0.0-5.0); HEMATOCRIT. 32.5 % (42.0-52.0); HEMOGLOBIN. 10.7 g/dL (14.0-18.0); LYMPHOCYTES % 9.2 % (20.0-50.0); MEAN CORPUSCULAR HEMOGLOBIN 33.4 pg (28.0-32.0); MEAN CORPUSCULAR VOLUME 101.3 fL (80.0-94.0); MEAN PLATELET VOLUME 8.6 fl (7.4-10.4); MONOCYTES % 8.2 % (2.0-8.0); NEUTROPHILS % 82.1 % (40.0-76.0); PLATELET 77 x1000/uL (130-400); RED BLOOD CELL COUNT 3.21 mill/uL (4.7-6.1); RED CELL DISTRIBUTION WIDTH 17.7 % (11.6-14.6)
[2019-08-16 07:36] LABS: CHLORIDE 107 mEq/L (98-107)
[2019-08-16] MEDS: PANTOPRAZOLE 40MG DR TABLET PO SCH ×2 (07:50→08:40)
[2019-08-16] MEDS: BUDESONIDE 0.5MG/2ML NEB HHN SCH ×2 (07:58→20:27)
[2019-08-16] MEDS: HYDROMORPHONE HCL/PF 2MG/ML CPJ IV PRN ×5 (08:39→23:58)
[2019-08-16 09:02] LABS: BG BASE EXCESS 4.2 mmol/L (-2.0-2.0); BG CARBOXYHEMOGLOBIN 0.1 % (0.5-1.5); BG DEOXYHEMOGLOBIN 3.2 % (0.0-5.0); BG FRACTION INSPIRED OXYGEN 40; BG HCO3 ACT 30.2 mmol/L (22.0-26.0); BG METHEMOGLOBIN 0.1 % (0.0-1.5); BG OXYGEN SATURATION 96.8 % (92.0-98.5); BG OXYHEMOGLOBIN 96.6 % (94.0-97.0); BG PH 7.374 (7.350-7.450); BG PO2 96.2 mmHg (75.0-100.0); BG SAMPLE SITE RIGHT RADIAL; BG TIDAL VOLUME(mL) 500 mL; BG TOTAL HEMOGLOBIN 10.1 g/dL (12.0-18.0); BG VENT MODE VENT - A/C; BG VENT RATE 16 set
[2019-08-16] MEDS ORDERED: MAGNESIUM 1 G PREMIX 100 ML IV NR (10:00)
[2019-08-16 11:22] LABS: BG BASE EXCESS 0.6 mmol/L (-2.0-2.0); BG CARBOXYHEMOGLOBIN 0.2 % (0.5-1.5); BG CPAP (cmH2O) 0 cm(H2O); BG DEOXYHEMOGLOBIN 4.8 % (0.0-5.0); BG HCO3 ACT 27.5 mmol/L (22.0-26.0); BG METHEMOGLOBIN 0.3 % (0.0-1.5); BG OXYGEN SATURATION 95.2 % (92.0-98.5); BG OXYHEMOGLOBIN 94.7 % (94.0-97.0); BG PCO2 55.3 mmHg (35.0-45.0); BG PH 7.315 (7.350-7.450); BG PO2 82.1 mmHg (75.0-100.0); BG SAMPLE SITE RIGHT RADIAL; BG TOTAL HEMOGLOBIN 11.2 g/dL (12.0-18.0); BG VENT MODE VENT - CPAP
[2019-08-17] VITALS (31 sets, daily range): BP systolic 83–117; BP diastolic 48–77
[2019-08-17] MEDS: IPRATROPIUM/ALBUTEROL 0.5-3(2.5)MG/3ML NEB HHN SCH ×3 (01:04→18:44)
[2019-08-17] MEDS: HYDROMORPHONE HCL/PF 2MG/ML CPJ IV PRN ×6 (02:15→21:42)
[2019-08-17 07:09] LABS: HEMATOCRIT. 27.7 % (42.0-52.0); HEMOGLOBIN. 9.2 g/dL (14.0-18.0); MEAN CORPUSCULAR HEMOGLOBIN 32.1 pg (28.0-32.0); MEAN CORPUSCULAR VOLUME 97.1 fL (80.0-94.0); MEAN PLATELET VOLUME 8.2 fl (7.4-10.4); PLATELET 89 x1000/uL (130-400); RED BLOOD CELL COUNT 2.86 mill/uL (4.7-6.1); RED CELL DISTRIBUTION WIDTH 16.9 % (11.6-14.6)
[2019-08-17 07:46] LABS: CHLORIDE 102 mEq/L (98-107)
[2019-08-17] MEDS: DEXT 5%/0.9% NACL 1,000 ML IV SCH ×2 (08:13→20:16)
[2019-08-17] MEDS: PANTOPRAZOLE 40MG DR TABLET PO SCH (08:13)
[2019-08-17] MEDS: BUDESONIDE 0.5MG/2ML NEB HHN SCH (11:12)
[2019-08-17 11:47] LABS: PLATELET ESTIMATE DECREASED
[2019-08-17] MEDS: PIPERACILLIN/TAZOBACTAM 3.375 G in DEXT 5% WATER 100 ML IV SCH ×3 (12:58→23:39)
[2019-08-17] MEDS: LORAZEPAM 0.5MG TABLET PO PRN (13:49)
[2019-08-17] MEDS ORDERED: PIPERACILLIN/TAZOBACTAM 3.375 G/VIAL IV SCH (14:00)
[2019-08-17] MEDS ORDERED: VANCOMYCIN 1500MG in DEXTROSE 5% WATER 250ML IV SCH (14:00)
[2019-08-18] VITALS (28 sets, daily range): BP systolic 86–122; BP diastolic 40–80
[2019-08-18] MEDS: LORAZEPAM 0.5MG TABLET PO PRN ×2 (00:02→21:58)
[2019-08-18] MEDS: VANCOMYCIN 1250MG in DEXTROSE 5% WATER 250ML IV SCH ×2 (01:02→13:58)
[2019-08-18] MEDS: IPRATROPIUM/ALBUTEROL 0.5-3(2.5)MG/3ML NEB HHN SCH ×4 (02:16→20:23)
[2019-08-18] MEDS: HYDROMORPHONE HCL/PF 2MG/ML CPJ IV PRN ×2 (04:30→13:58)
[2019-08-18] MEDS: PIPERACILLIN/TAZOBACTAM 3.375 G in DEXT 5% WATER 100 ML IV SCH ×4 (05:26→23:43)
[2019-08-18 05:47] LABS: BASOPHILS % 0.4 % (0.0-2.0); HEMATOCRIT. 25.9 % (42.0-52.0); HEMOGLOBIN. 8.8 g/dL (14.0-18.0); LYMPHOCYTES % 8.4 % (20.0-50.0); MEAN CORPUSCULAR HEMOGLOBIN 32.6 pg (28.0-32.0); MEAN CORPUSCULAR VOLUME 96.4 fL (80.0-94.0); MEAN PLATELET VOLUME 8.2 fl (7.4-10.4); MONOCYTES % 5.9 % (2.0-8.0); NEUTROPHILS % 83.3 % (40.0-76.0); PLATELET 78 x1000/uL (130-400); RED BLOOD CELL COUNT 2.69 mill/uL (4.7-6.1); RED CELL DISTRIBUTION WIDTH 16.9 % (11.6-14.6)
[2019-08-18 05:56] LABS: CHLORIDE 102 mEq/L (98-107)
[2019-08-18] MEDS: PANTOPRAZOLE 40MG DR TABLET PO SCH (08:01)
[2019-08-18] MEDS: DEXT 5%/0.9% NACL 1,000 ML IV SCH ×2 (09:35→23:43)
[2019-08-18] MEDS: POLYETHYLENE GLYCOL 3350 (17GM) 1 DOSE PACK PO SCH ×2 (09:57→20:25)
[2019-08-18] MEDS ORDERED: ACETAMINOPHEN WITH CODEINE 120-12MG/5ML UDC PO PRN (14:45)
[2019-08-18] MEDS ORDERED: GUAIFENESIN/CODEINE 100-10MG/5ML UDC PO PRN (16:15)
[2019-08-18] MEDS: DOCUSATE SODIUM 100MG CAPSULE PO SCH (16:32)
[2019-08-18] MEDS ORDERED: GUAIFENESIN/CODEINE 200-20MG/10ML UDC PO PRN (17:15)
[2019-08-19] VITALS (42 sets, daily range): BP systolic 86–128; BP diastolic 35–99
[2019-08-19] MEDS: IPRATROPIUM/ALBUTEROL 0.5-3(2.5)MG/3ML NEB HHN SCH ×4 (02:03→20:51)
[2019-08-19] MEDS: VANCOMYCIN 1250MG in DEXTROSE 5% WATER 250ML IV SCH ×2 (02:20→14:00)
[2019-08-19] MEDS: PIPERACILLIN/TAZOBACTAM 3.375 G in DEXT 5% WATER 100 ML IV SCH ×3 (05:09→17:28)
[2019-08-19] MEDS: HYDROMORPHONE HCL/PF 2MG/ML CPJ IV PRN ×5 (05:56→21:28)
[2019-08-19 06:00] LABS: BASOPHILS % 0.6 % (0.0-2.0); EOSINOPHILS % 2.2 % (0.0-5.0); HEMATOCRIT. 26.4 % (42.0-52.0); HEMOGLOBIN. 8.8 g/dL (14.0-18.0); LYMPHOCYTES % 9.1 % (20.0-50.0); MEAN CORPUSCULAR VOLUME 95.7 fL (80.0-94.0); MEAN PLATELET VOLUME 8.2 fl (7.4-10.4); MONOCYTES % 6.9 % (2.0-8.0); NEUTROPHILS % 81.2 % (40.0-76.0); PLATELET 82 x1000/uL (130-400); RED BLOOD CELL COUNT 2.76 mill/uL (4.7-6.1); RED CELL DISTRIBUTION WIDTH 16.4 % (11.6-14.6)
[2019-08-19 06:05] LABS: CHLORIDE 103 mEq/L (98-107)
[2019-08-19] MEDS ORDERED: SODIUM BICARBONATE 4% (2.4MEQ) 5ML VIAL IV ONE (07:25)
[2019-08-19] MEDS ORDERED: LIDOCAINE HCL 1% 20ML VIAL (Pyxis) INJ ONE (07:25)
[2019-08-19] MEDS ORDERED: IOHEXOL-300 100 ML BOTTLE ONE (07:26)
[2019-08-19] MEDS: PANTOPRAZOLE 40MG DR TABLET PO SCH (07:50)
[2019-08-19] MEDS: POLYETHYLENE GLYCOL 3350 (17GM) 1 DOSE PACK PO SCH ×2 (08:06→21:27)
[2019-08-19] MEDS: DOCUSATE SODIUM 100MG CAPSULE PO SCH ×2 (08:06→17:28)
[2019-08-19] MEDS ORDERED: POTASSIUM CHLORIDE 20MEQ TABLET SR PO SCH ×2 (09:00→11:00)
[2019-08-19 10:18] LABS: INR 1.3
[2019-08-19] MEDS ORDERED: MAGNESIUM SULFATE 3 GM in DEXT 5% WATER 94 ML IV SCH (12:00)
[2019-08-20] MEDS: PIPERACILLIN/TAZOBACTAM 3.375 G in DEXT 5% WATER 100 ML IV SCH ×5 (00:25→23:26)
[2019-08-20] MEDS: IPRATROPIUM/ALBUTEROL 0.5-3(2.5)MG/3ML NEB HHN SCH ×4 (00:47→20:27)
[2019-08-20] MEDS: VANCOMYCIN 1250MG in DEXTROSE 5% WATER 250ML IV SCH ×2 (01:01→15:47)
[2019-08-20] MEDS: HYDROMORPHONE HCL/PF 2MG/ML CPJ IV PRN ×2 (01:46→09:21)
[2019-08-20 04:00] VITALS: BP 91/58
[2019-08-20] MEDS: PANTOPRAZOLE 40MG DR TABLET PO SCH (06:23)
[2019-08-20 08:00] VITALS: BP 93/58
[2019-08-20] MEDS: POLYETHYLENE GLYCOL 3350 (17GM) 1 DOSE PACK PO SCH ×2 (08:17→20:31)
[2019-08-20] MEDS: DOCUSATE SODIUM 100MG CAPSULE PO SCH ×2 (08:17→16:25)
[2019-08-20 12:00] VITALS: BP 93/57
[2019-08-20] MEDS: HYDROCODONE/ACETAMINOPHEN 5/325MG TABLET PO PRN ×2 (13:29→21:42)
[2019-08-20 16:00] VITALS: BP 97/56
[2019-08-20 18:55] LABS: CHLORIDE 99 mEq/L (98-107)
[2019-08-20 18:56] LABS: BASOPHILS % 0.9 % (0.0-2.0); EOSINOPHILS % 3.4 % (0.0-5.0); HEMATOCRIT. 26.1 % (42.0-52.0); HEMOGLOBIN. 8.7 g/dL (14.0-18.0); LYMPHOCYTES % 9.2 % (20.0-50.0); MEAN CORPUSCULAR HEMOGLOBIN 32.1 pg (28.0-32.0); MEAN CORPUSCULAR VOLUME 95.8 fL (80.0-94.0); MEAN PLATELET VOLUME 8.3 fl (7.4-10.4); MONOCYTES % 7.6 % (2.0-8.0); NEUTROPHILS % 78.9 % (40.0-76.0); PLATELET 85 x1000/uL (130-400); RED BLOOD CELL COUNT 2.73 mill/uL (4.7-6.1); RED CELL DISTRIBUTION WIDTH 16.5 % (11.6-14.6)
[2019-08-20 20:00] VITALS: BP 99/61
[2019-08-21] VITALS: BP 88/54
[2019-08-21] MEDS: VANCOMYCIN 1250MG in DEXTROSE 5% WATER 250ML IV SCH ×2 (01:50→14:35)
[2019-08-21] MEDS: IPRATROPIUM/ALBUTEROL 0.5-3(2.5)MG/3ML NEB HHN SCH ×4 (01:53→21:43)
[2019-08-21] MEDS: GUAIFENESIN/CODEINE 200-20MG/10ML UDC PO PRN ×2 (02:25→13:04)
[2019-08-21 04:00] VITALS: BP 89/53
[2019-08-21] MEDS: PIPERACILLIN/TAZOBACTAM 3.375 G in DEXT 5% WATER 100 ML IV SCH ×3 (05:31→17:12)
[2019-08-21] MEDS: PANTOPRAZOLE 40MG DR TABLET PO SCH (06:00)
[2019-08-21 08:00] VITALS: BP 102/60
[2019-08-21] MEDS: POLYETHYLENE GLYCOL 3350 (17GM) 1 DOSE PACK PO SCH ×2 (09:00→20:24)
[2019-08-21] MEDS: DOCUSATE SODIUM 100MG CAPSULE PO SCH ×2 (09:01→17:05)
[2019-08-21] MEDS: HYDROCODONE/ACETAMINOPHEN 5/325MG TABLET PO PRN ×3 (09:16→20:36)
[2019-08-21 12:00] VITALS: BP 94/56
[2019-08-21 12:06] LABS: BG CARBOXYHEMOGLOBIN 0.4 % (0.5-1.5); BG DEOXYHEMOGLOBIN 9.1 % (0.0-5.0); BG FRACTION INSPIRED OXYGEN 21; BG HCO3 ACT 30.2 mmol/L (22.0-26.0); BG METHEMOGLOBIN 0.2 % (0.0-1.5); BG OXYGEN SATURATION 90.8 % (92.0-98.5); BG OXYHEMOGLOBIN 90.3 % (94.0-97.0); BG PCO2 41.9 mmHg (35.0-45.0); BG PH 7.475 (7.350-7.450); BG PO2 58.4 mmHg (75.0-100.0); BG SAMPLE SITE RIGHT BRACHIAL; BG VENT MODE ROOM AIR
[2019-08-21 16:00] VITALS: BP 93/60
[2019-08-21 20:00] VITALS: BP 100/61
[2019-08-21] MEDS: LORAZEPAM 0.5MG TABLET PO PRN (20:37)
[2019-08-22 00:20] VITALS: BP 87/48
[2019-08-22] MEDS: PIPERACILLIN/TAZOBACTAM 3.375 G in DEXT 5% WATER 100 ML IV SCH ×4 (00:31→18:32)
[2019-08-22] MEDS: VANCOMYCIN 1250MG in DEXTROSE 5% WATER 250ML IV SCH ×2 (01:05→14:45)
[2019-08-22] MEDS: IPRATROPIUM/ALBUTEROL 0.5-3(2.5)MG/3ML NEB HHN SCH ×4 (01:10→21:14)
[2019-08-22 04:00] VITALS: BP 90/52
[2019-08-22] MEDS: PANTOPRAZOLE 40MG DR TABLET PO SCH (05:28)
[2019-08-22 06:52] LABS: HEMATOCRIT. 28.6 % (42.0-52.0); HEMOGLOBIN. 9.7 g/dL (14.0-18.0); MEAN CORPUSCULAR HEMOGLOBIN 32.3 pg (28.0-32.0); MEAN CORPUSCULAR VOLUME 95.1 fL (80.0-94.0); MEAN PLATELET VOLUME 9.1 fl (7.4-10.4); PLATELET 137 x1000/uL (130-400); RED BLOOD CELL COUNT 3.01 mill/uL (4.7-6.1); RED CELL DISTRIBUTION WIDTH 16.5 % (11.6-14.6)
[2019-08-22 07:21] LABS: CHLORIDE 100 mEq/L (98-107)
[2019-08-22] MEDS: GUAIFENESIN/CODEINE 200-20MG/10ML UDC PO PRN (07:28)
[2019-08-22 08:00] VITALS: BP 92/56
[2019-08-22] MEDS: DOCUSATE SODIUM 100MG CAPSULE PO SCH ×2 (09:00→16:37)
[2019-08-22] MEDS: POLYETHYLENE GLYCOL 3350 (17GM) 1 DOSE PACK PO SCH ×3 (09:00→21:28)
[2019-08-22] MEDS: LORAZEPAM 0.5MG TABLET PO PRN (09:52)
[2019-08-22 10:00] LABS: PLATELET ESTIMATE NORMAL
[2019-08-22] MEDS ORDERED: LACTULOSE 20G/30ML UDC PO NR (11:45)
[2019-08-22 12:00] VITALS: BP 87/61
[2019-08-22] MEDS: LACTULOSE 20G/30ML UDC PO SCH ×2 (14:00→21:28)
[2019-08-22 16:00] VITALS: BP 92/57
[2019-08-22 20:00] VITALS: BP 88/53
[2019-08-22] MEDS: ACETAMINOPHEN 325MG TABLET PO PRN (22:58)
[2019-08-23] VITALS: BP 82/50
[2019-08-23] MEDS: IPRATROPIUM/ALBUTEROL 0.5-3(2.5)MG/3ML NEB HHN SCH ×4 (01:39→21:20)
[2019-08-23] MEDS: VANCOMYCIN 1250MG in DEXTROSE 5% WATER 250ML IV SCH ×2 (01:41→14:27)
[2019-08-23] MEDS: PIPERACILLIN/TAZOBACTAM 3.375 G in DEXT 5% WATER 100 ML IV SCH ×4 (01:41→18:08)
[2019-08-23 04:00] VITALS: BP 84/51
[2019-08-23] MEDS: LACTULOSE 20G/30ML UDC PO SCH (06:00)
[2019-08-23] MEDS: PANTOPRAZOLE 40MG DR TABLET PO SCH (06:13)
[2019-08-23 08:00] VITALS: BP 95/45
[2019-08-23] MEDS: POLYETHYLENE GLYCOL 3350 (17GM) 1 DOSE PACK PO SCH ×2 (08:20→20:54)
[2019-08-23] MEDS: DOCUSATE SODIUM 100MG CAPSULE PO SCH ×2 (08:20→17:00)
[2019-08-23 12:00] VITALS: BP 99/58
[2019-08-23] MEDS: HYDROCODONE/ACETAMINOPHEN 5/325MG TABLET PO PRN (12:54)
[2019-08-23 14:33] LABS: BASOPHILS % 1.2 % (0.0-2.0); EOSINOPHILS % 2.9 % (0.0-5.0); HEMATOCRIT. 25.2 % (42.0-52.0); HEMOGLOBIN. 8.5 g/dL (14.0-18.0); LYMPHOCYTES % 11.3 % (20.0-50.0); MEAN CORPUSCULAR HEMOGLOBIN 32.1 pg (28.0-32.0); MEAN CORPUSCULAR VOLUME 95.3 fL (80.0-94.0); MEAN PLATELET VOLUME 8.7 fl (7.4-10.4); MONOCYTES % 7.5 % (2.0-8.0); NEUTROPHILS % 77.1 % (40.0-76.0); PLATELET 105 x1000/uL (130-400); RED BLOOD CELL COUNT 2.64 mill/uL (4.7-6.1); RED CELL DISTRIBUTION WIDTH 16.8 % (11.6-14.6)
[2019-08-23 16:00] VITALS: BP 96/46
[2019-08-23 20:00] VITALS: BP 98/59
[2019-08-23] MEDS ORDERED: POTASSIUM CHLORIDE 20MEQ TABLET SR PO NR (21:06)
[2019-08-23] MEDS ORDERED: MAGNESIUM 2 G PREMIX 50 ML IV NR (22:30)
[2019-08-24] VITALS: BP 95/59
[2019-08-24] MEDS: PIPERACILLIN/TAZOBACTAM 3.375 G in DEXT 5% WATER 100 ML IV SCH ×4 (01:10→17:13)
[2019-08-24] MEDS: VANCOMYCIN 1250MG in DEXTROSE 5% WATER 250ML IV SCH (01:10)
[2019-08-24] MEDS: IPRATROPIUM/ALBUTEROL 0.5-3(2.5)MG/3ML NEB HHN SCH ×3 (02:20→21:04)
[2019-08-24 04:00] VITALS: BP 89/55
[2019-08-24] MEDS: PANTOPRAZOLE 40MG DR TABLET PO SCH (06:14)
[2019-08-24 08:00] VITALS: BP 98/58
[2019-08-24] MEDS: DOCUSATE SODIUM 100MG CAPSULE PO SCH (08:41)
[2019-08-24] MEDS: POLYETHYLENE GLYCOL 3350 (17GM) 1 DOSE PACK PO SCH (08:41)
[2019-08-24] MEDS ORDERED: LACTULOSE 20G/30ML UDC PO SCH (09:00)
[2019-08-24 12:00] VITALS: BP 96/59
[2019-08-24 16:00] VITALS: BP 96/85
[2019-08-24] MEDS: ACETAMINOPHEN 325MG TABLET PO PRN (16:45)
[2019-08-24 20:00] VITALS: BP 85/56
[2019-08-25] VITALS: BP 104/63
[2019-08-25] MEDS: IPRATROPIUM/ALBUTEROL 0.5-3(2.5)MG/3ML NEB HHN SCH ×2 (01:07→21:15)
[2019-08-25 04:00] VITALS: BP 96/57
[2019-08-25] MEDS: PANTOPRAZOLE 40MG DR TABLET PO SCH (06:26)
[2019-08-25 08:00] VITALS: BP 91/55
[2019-08-25 12:00] VITALS: BP 100/60
[2019-08-25 16:00] VITALS: BP 101/69
[2019-08-25] MEDS ORDERED: VANCOMYCIN HCL 1000 MG/20 ML ORAL PO SCH (18:00)
[2019-08-25] MEDS ORDERED: VANCOMYCIN HCL 1 GM/VIAL PO SCH (18:00)
[2019-08-25 20:00] VITALS: BP 129/71
[2019-08-25] MEDS: LORAZEPAM 0.5MG TABLET PO PRN (21:42)
[2019-08-26] VITALS: BP 102/64
[2019-08-26] MEDS: VANCOMYCIN HCL 1000 MG/20 ML ORAL PO SCH ×4 (03:17→22:39)
[2019-08-26 04:00] VITALS: BP 104/63
[2019-08-26] MEDS: ACETAMINOPHEN 325MG TABLET PO PRN ×2 (04:12→17:55)
[2019-08-26] MEDS: IPRATROPIUM/ALBUTEROL 0.5-3(2.5)MG/3ML NEB HHN SCH ×4 (04:40→20:37)
[2019-08-26] MEDS: PANTOPRAZOLE 40MG DR TABLET PO SCH (05:44)
[2019-08-26 07:11] LABS: CHLORIDE 102 mEq/L (98-107)
[2019-08-26 07:21] LABS: PHOSPHORUS 3.1 mg/dL (2.5-4.9)
[2019-08-26 07:32] LABS: BASOPHILS % 1.2 % (0.0-2.0); EOSINOPHILS % 2.6 % (0.0-5.0); HEMATOCRIT. 27.8 % (42.0-52.0); LYMPHOCYTES % 12.8 % (20.0-50.0); MEAN CORPUSCULAR HEMOGLOBIN 31.5 pg (28.0-32.0); MEAN CORPUSCULAR VOLUME 97.1 fL (80.0-94.0); MEAN PLATELET VOLUME 8.6 fl (7.4-10.4); MONOCYTES % 8.2 % (2.0-8.0); NEUTROPHILS % 75.2 % (40.0-76.0); PLATELET 148 x1000/uL (130-400); RED BLOOD CELL COUNT 2.87 mill/uL (4.7-6.1)
[2019-08-26] MEDS ORDERED: GUAIFENESIN/DM 600MG/30MG ER TAB 12HR PO PRN (10:30)
[2019-08-26] MEDS: LEVOFLOXACIN 500MG PREMIX 100 ML IV SCH (15:22)
[2019-08-26] MEDS: LORAZEPAM 0.5MG TABLET PO PRN (18:29)
[2019-08-26] MEDS: CEFEPIME 1,000 MG in DEXTROSE 5% WATER 50 ML IV SCH (18:38)
[2019-08-26 20:00] VITALS: BP 101/58
[2019-08-27] VITALS: BP 93/58
[2019-08-27] MEDS: IPRATROPIUM/ALBUTEROL 0.5-3(2.5)MG/3ML NEB HHN SCH ×4 (02:01→21:04)
[2019-08-27] MEDS: VANCOMYCIN HCL 1000 MG/20 ML ORAL PO SCH ×2 (03:28→09:03)
[2019-08-27 04:00] VITALS: BP 92/45
[2019-08-27] MEDS: PANTOPRAZOLE 40MG DR TABLET PO SCH (05:53)
[2019-08-27] MEDS: CEFEPIME 1,000 MG in DEXTROSE 5% WATER 50 ML IV SCH ×2 (05:53→18:05)
[2019-08-27 06:49] LABS: BASOPHILS % 1.2 % (0.0-2.0); EOSINOPHILS % 2.2 % (0.0-5.0); HEMATOCRIT. 25.6 % (42.0-52.0); HEMOGLOBIN. 8.6 g/dL (14.0-18.0); LYMPHOCYTES % 9.9 % (20.0-50.0); MEAN CORPUSCULAR HEMOGLOBIN 32.1 pg (28.0-32.0); MEAN CORPUSCULAR VOLUME 95.6 fL (80.0-94.0); MEAN PLATELET VOLUME 8.6 fl (7.4-10.4); MONOCYTES % 7.4 % (2.0-8.0); NEUTROPHILS % 79.3 % (40.0-76.0); PLATELET 148 x1000/uL (130-400); RED BLOOD CELL COUNT 2.68 mill/uL (4.7-6.1); RED CELL DISTRIBUTION WIDTH 16.9 % (11.6-14.6)
[2019-08-27 08:00] VITALS: BP 90/55
[2019-08-27] MEDS ORDERED: BARIUM SULFATE 176 GM SUSP.RECON ONE (09:08)
[2019-08-27] MEDS ORDERED: MAGNESIUM 2 G PREMIX 50 ML IV SCH (10:00)
[2019-08-27 12:00] VITALS: BP 111/66
[2019-08-27] MEDS: LEVOFLOXACIN 500MG PREMIX 100 ML IV SCH (15:34)
[2019-08-27 16:00] VITALS: BP 105/66
[2019-08-27 20:00] VITALS: BP 111/69
[2019-08-27] MEDS: LORAZEPAM 0.5MG TABLET PO PRN (20:34)
[2019-08-28] MEDS: IPRATROPIUM/ALBUTEROL 0.5-3(2.5)MG/3ML NEB HHN SCH ×3 (01:30→14:56)
[2019-08-28 04:00] VITALS: BP 141/87
[2019-08-28] MEDS: PANTOPRAZOLE 40MG DR TABLET PO SCH (06:29)
[2019-08-28] MEDS: CEFEPIME 1,000 MG in DEXTROSE 5% WATER 50 ML IV SCH (06:29)
[2019-08-28 07:30] LABS: EOSINOPHILS % 2.2 % (0.0-5.0); HEMOGLOBIN. 8.3 g/dL (14.0-18.0); LYMPHOCYTES % 8.2 % (20.0-50.0); MEAN CORPUSCULAR HEMOGLOBIN 31.9 pg (28.0-32.0); MEAN CORPUSCULAR VOLUME 95.7 fL (80.0-94.0); MEAN PLATELET VOLUME 8.6 fl (7.4-10.4); MONOCYTES % 7.4 % (2.0-8.0); NEUTROPHILS % 81.2 % (40.0-76.0); PLATELET 162 x1000/uL (130-400); RED BLOOD CELL COUNT 2.61 mill/uL (4.7-6.1); RED CELL DISTRIBUTION WIDTH 16.3 % (11.6-14.6)
[2019-08-28 08:00] VITALS: BP 111/69
[2019-08-28 12:00] VITALS: BP_SYST 106; BP_SYST 96; BP_DIAS 54; BP_DIAS 61
[2019-08-28] MEDS: LEVOFLOXACIN 500MG PREMIX 100 ML IV SCH (14:10)
[2019-08-28 15:01] VITALS: BP 110/65
[2019-08-28] MEDS ORDERED: VANCOMYCIN HCL 1000 MG/20 ML ORAL PO SCH (18:00)
== END 2019-08-28 16:55 | DRG 853 ==
LOC: 8WST 21:38 → CVICU 08-15 10:11 → 5WST 08-19 23:41
PROVIDERS: ADMIT Family Medicine Adult Medicine; ATTEND Family Medicine Adult Medicine
PROC: 3E0T3BZ Introduction of Anesthetic Agent into Peripheral Nerves and Plexi, Percutaneous Approach (ICD-10-PCS; principal; 2019-08-15)
PROC: 0B5P4ZZ Destruction of Left Pleura, Percutaneous Endoscopic Approach (ICD-10-PCS; 2019-08-15)
PROC: 0BNP4ZZ Release Left Pleura, Percutaneous Endoscopic Approach (ICD-10-PCS; 2019-08-15)
PROC: 3E0L3GC Introduction of Other Therapeutic Substance into Pleural Cavity, Percutaneous Approach (ICD-10-PCS; 2019-08-15)
PROC: 0BJ08ZZ Inspection of Tracheobronchial Tree, Via Natural or Artificial Opening Endoscopic (ICD-10-PCS; 2019-08-15)
PROC: 0W9B30Z Drainage of Left Pleural Cavity with Drainage Device, Percutaneous Approach (ICD-10-PCS; 2019-08-15)
PROC: 5A1945Z Respiratory Ventilation, 24-96 Consecutive Hours (ICD-10-PCS; 2019-08-15)
PROC: 06H03DZ Insertion of Intraluminal Device into Inferior Vena Cava, Percutaneous Approach (ICD-10-PCS; 2019-08-15)
DX: A41.9 Sepsis, unspecified organism (principal); E43 Unspecified severe protein-calorie malnutrition; J15.5 Pneumonia due to Escherichia coli; J86.9 Pyothorax without fistula; G93.41 Metabolic encephalopathy; J96.02 Acute respiratory failure with hypercapnia; J96.01 Acute respiratory failure with hypoxia; J90 Pleural effusion, not elsewhere classified; J94.8 Other specified pleural conditions; G62.81 Critical illness polyneuropathy; J44.0 Chronic obstructive pulmonary disease with (acute) lower respiratory infection; J44.1 Chronic obstructive pulmonary disease with (acute) exacerbation; J91.8 Pleural effusion in other conditions classified elsewhere; K52.1 Toxic gastroenteritis and colitis; N17.9 Acute kidney failure, unspecified; I82.432 Acute embolism and thrombosis of left popliteal vein; F17.200 Nicotine dependence, unspecified, uncomplicated; J44.9 Chronic obstructive pulmonary disease, unspecified; I10 Essential (primary) hypertension; F32.9 Major depressive disorder, single episode, unspecified; F41.9 Anxiety disorder, unspecified; D64.9 Anemia, unspecified; F10.20 Alcohol dependence, uncomplicated; E87.6 Hypokalemia; Z96.642 Presence of left artificial hip joint; D69.6 Thrombocytopenia, unspecified; E78.5 Hyperlipidemia, unspecified; E83.42 Hypomagnesemia; I95.1 Orthostatic hypotension; K70.30 Alcoholic cirrhosis of liver without ascites; L89.159 Pressure ulcer of sacral region, unspecified stage; R73.9 Hyperglycemia, unspecified; T36.95XA Adverse effect of unspecified systemic antibiotic, initial encounter; Z22.322 Carrier or suspected carrier of Methicillin resistant Staphylococcus aureus; Z95.828 Presence of other vascular implants and grafts; Z82.49 Family history of ischemic heart disease and other diseases of the circulatory system; Z86.718 Personal history of other venous thrombosis and embolism; Z68.22 Body mass index [BMI] 22.0-22.9, adult
CPT/HCPCS: 36415; 36600; 37191; 71045; 71250; 74230; 80048; 80053; 80076; 80202; 82140; 82375; 82550; 82805; 83735; 84100; 84443; 85025; 85027; 87070; 87075; 87106; 87493; 87804; 88108; 88305; 88312; 92523; 92610; 92611; 93970; 94002; 94003; 94618; 94640; 97110; 97162; 97166; 97530; 97535; A6261; C1769; C1880; J0171; J0692; J1100; J1170; J1644; J1956; J2250; J2405; J2543; J2704; J2710; J3010; J3370; J3475; J3490; J7040; J7042; J7060; J7626; Q9967

== ENCOUNTER 2019-08-28 16:53 | Inpatient (IN) | payer BC ==
[~2019-08-28] VITALS: Ht 170.2 cm; Wt 82.3 kg
[~2019-08-28 16:53] MED LIST changes: -ALBU05 NEB; -BUDE6HFA INH; -FERR324T4 MT; -FOLI-43 MT; +LANS15CA12 PO; -LORA-249 MT; +LORA2TAB95 PO; -P20 MT; -PANT40TA4 MT; -TOPUD MT
[2019-08-28 17:00] VITALS: BP 103/65
[2019-08-28] MEDS ORDERED: IPRATROPIUM/ALBUTEROL 0.5-3(2.5)MG/3ML NEB HHN PRN (17:45)
[2019-08-28] MEDS ORDERED: ACETAMINOPHEN 325MG TABLET PO PRN (17:45)
[2019-08-28] MEDS ORDERED: GUAIFENESIN/DM 600MG/30MG ER TAB 12HR PO PRN (17:45)
[2019-08-28 18:52] VITALS: BP 103/65
[2019-08-28] MEDS ORDERED: INFLUENZA VIRUS VACCINE(AFLURIA) 0.5ML SYR IM ONE (19:00)
[2019-08-28] MEDS: IPRATROPIUM/ALBUTEROL 0.5-3(2.5)MG/3ML NEB HHN SCH (19:58)
[2019-08-28 20:00] VITALS: BP 105/64
[2019-08-28 20:14] LABS: BASOPHILS % 0.8 % (0.0-2.0); EOSINOPHILS % 2.1 % (0.0-5.0); HEMATOCRIT. 25.4 % (42.0-52.0); HEMOGLOBIN. 8.4 g/dL (14.0-18.0); LYMPHOCYTES % 8.1 % (20.0-50.0); MEAN CORPUSCULAR HEMOGLOBIN 31.6 pg (28.0-32.0); MEAN CORPUSCULAR VOLUME 95.5 fL (80.0-94.0); MEAN PLATELET VOLUME 7.9 fl (7.4-10.4); MONOCYTES % 7.6 % (2.0-8.0); NEUTROPHILS % 81.4 % (40.0-76.0); PLATELET 170 x1000/uL (130-400); RED BLOOD CELL COUNT 2.66 mill/uL (4.7-6.1); RED CELL DISTRIBUTION WIDTH 16.6 % (11.6-14.6)
[2019-08-28 20:18] LABS: CHLORIDE 102 mEq/L (98-107)
[2019-08-28] MEDS ORDERED: CEFEPIME 1,000 MG in DEXTROSE 5% WATER 50 ML IV SCH (21:00)
[2019-08-28] MEDS: LORAZEPAM 1MG TABLET PO PRN (23:50)
[2019-08-29] MEDS: IPRATROPIUM/ALBUTEROL 0.5-3(2.5)MG/3ML NEB HHN SCH ×5 (01:50→21:10)
[2019-08-29] MEDS ORDERED: LEVOFLOXACIN 500MG PREMIX 100 ML IV SCH (06:00)
[2019-08-29] MEDS: PANTOPRAZOLE 40MG DR TABLET PO SCH (06:46)
[2019-08-29 08:02] VITALS: BP 109/73
[2019-08-29] MEDS: LEVOFLOXACIN 500MG TABLET PO SCH (10:56)
[2019-08-29] MEDS: ENOXAPARIN 40MG/0.4ML SYR SUBCUT SCH (12:50)
[2019-08-29] MEDS ORDERED: GUAIFENESIN/DM 600MG/30MG ER TAB 12HR PO PRN (14:30)
[2019-08-29 16:11] LABS: BASOPHILS % 0.8 % (0.0-2.0); EOSINOPHILS % 1.3 % (0.0-5.0); HEMATOCRIT. 25.4 % (42.0-52.0); HEMOGLOBIN. 8.5 g/dL (14.0-18.0); LYMPHOCYTES % 8.1 % (20.0-50.0); MEAN CORPUSCULAR HEMOGLOBIN 31.9 pg (28.0-32.0); MEAN CORPUSCULAR VOLUME 95.4 fL (80.0-94.0); MEAN PLATELET VOLUME 8.2 fl (7.4-10.4); NEUTROPHILS % 81.8 % (40.0-76.0); PLATELET 190 x1000/uL (130-400); RED BLOOD CELL COUNT 2.66 mill/uL (4.7-6.1); RED CELL DISTRIBUTION WIDTH 16.6 % (11.6-14.6)
[2019-08-29 16:14] VITALS: BP 104/66
[2019-08-29] MEDS: VANCOMYCIN HCL 1000 MG/20 ML ORAL PO SCH (17:44)
[2019-08-29] MEDS: LORAZEPAM 1MG TABLET PO PRN (18:11)
[2019-08-29 20:00] VITALS: BP 107/63
[2019-08-29] MEDS: BUDESONIDE 0.5MG/2ML NEB HHN SCH (21:11)
[2019-08-30] MEDS: VANCOMYCIN HCL 1000 MG/20 ML ORAL PO SCH ×4 (00:28→18:30)
[2019-08-30] MEDS: PANTOPRAZOLE 40MG DR TABLET PO SCH (05:44)
[2019-08-30 08:00] VITALS: BP 109/73
[2019-08-30] MEDS: LEVOFLOXACIN 500MG TABLET PO SCH (10:25)
[2019-08-30] MEDS: ENOXAPARIN 40MG/0.4ML SYR SUBCUT SCH (10:25)
[2019-08-30] MEDS: IPRATROPIUM/ALBUTEROL 0.5-3(2.5)MG/3ML NEB HHN SCH ×2 (12:09→15:51)
[2019-08-30] MEDS: BUDESONIDE 0.5MG/2ML NEB HHN SCH ×2 (12:09→13:35)
[2019-08-30] MEDS: LORAZEPAM 1MG TABLET PO PRN (15:45)
[2019-08-30] MEDS ORDERED: THROAT LOZENGES-BENZOCAINE/MENTH/CETYLPYRD CL LOZENGES MM PRN (16:00)
[2019-08-30] MEDS: GUAIFENESIN/CODEINE 200-20MG/10ML UDC PO PRN (18:30)
[2019-08-30 20:00] VITALS: BP 118/64
[2019-08-30] MEDS: METOPROLOL TARTRATE 25MG TABLET PO SCH (21:00)
[2019-08-30 21:30] LABS: CLARITY URINE CLEAR (CLEAR); COLOR URINE YELLOW (YELLOW); KETONES URINE NEGATIVE (NEGATIVE); LEUKOCYTE ESTERASE URINE NEGATIVE (NEGATIVE); NITRITE URINE NEGATIVE (NEGATIVE); OCCULT BLOOD URINE NEGATIVE (NEGATIVE); PH URINE 5.5 (4.5-8.0); PROTEIN URINE NEGATIVE (NEGATIVE); SPECIFIC GRAVITY URINE 1.009 (1.005-1.030); UROBILINOGEN URINE 0.2 E.U./dL (0.2-1.0)
[2019-08-30] MEDS ORDERED: SODIUM CHLORIDE 10% FOR INH 15ML VIAL NEB INH NR (23:00)
[2019-08-31] MEDS: IPRATROPIUM/ALBUTEROL 0.5-3(2.5)MG/3ML NEB HHN SCH ×5 (01:04→20:18)
[2019-08-31] MEDS: GUAIFENESIN/CODEINE 200-20MG/10ML UDC PO PRN ×3 (01:31→17:41)
[2019-08-31] MEDS: CEFEPIME 1,000 MG in DEXTROSE 5% WATER 50 ML IV SCH ×2 (01:31→22:32)
[2019-08-31] MEDS: VANCOMYCIN HCL 1000 MG/20 ML ORAL PO SCH ×5 (01:32→23:41)
[2019-08-31] MEDS ORDERED: VANCOMYCIN 1500MG in DEXTROSE 5% WATER 250ML IV NR (03:00)
[2019-08-31 07:35] LABS: BASOPHILS % 1.4 % (0.0-2.0); EOSINOPHILS % 3.3 % (0.0-5.0); HEMATOCRIT. 25.1 % (42.0-52.0); HEMOGLOBIN. 8.2 g/dL (14.0-18.0); LYMPHOCYTES % 11.1 % (20.0-50.0); MEAN CORPUSCULAR HEMOGLOBIN 31.2 pg (28.0-32.0); MEAN PLATELET VOLUME 8.1 fl (7.4-10.4); MONOCYTES % 9.1 % (2.0-8.0); NEUTROPHILS % 75.1 % (40.0-76.0); PLATELET 192 x1000/uL (130-400); RED BLOOD CELL COUNT 2.64 mill/uL (4.7-6.1); RED CELL DISTRIBUTION WIDTH 16.5 % (11.6-14.6)
[2019-08-31 08:00] VITALS: BP 111/57
[2019-08-31] MEDS: METOPROLOL TARTRATE 25MG TABLET PO SCH ×2 (08:09→20:37)
[2019-08-31] MEDS: ENOXAPARIN 40MG/0.4ML SYR SUBCUT SCH (08:09)
[2019-08-31] MEDS: PANTOPRAZOLE 40MG DR TABLET PO SCH (08:09)
[2019-08-31 08:39] LABS: PHOSPHORUS 3.7 mg/dL (2.5-4.9)
[2019-08-31 10:49] LABS: PROSTRATE SPECIFIC AG TOTAL 0.2 ng/mL (0.0-4.0)
[2019-08-31] MEDS: MAGNESIUM OXIDE 400MG TABLET PO SCH ×2 (12:03→17:04)
[2019-08-31] MEDS: SODIUM CHLORIDE 0.45% 1,000 ML IV SCH (12:05)
[2019-08-31] MEDS: LEVOFLOXACIN 500MG TABLET PO SCH (12:53)
[2019-08-31 20:00] VITALS: BP 110/71
[2019-08-31] MEDS: BUDESONIDE 0.5MG/2ML NEB HHN SCH (20:18)
[2019-08-31] MEDS: LORAZEPAM 1MG TABLET PO PRN (21:42)
[2019-08-31] MEDS ORDERED: VANCOMYCIN 1 G PREMIX 200 ML IV SCH (23:00)
[2019-09-01] VITALS (12 sets, daily range): BP systolic 87–109; BP diastolic 52–67
[2019-09-01] MEDS: IPRATROPIUM/ALBUTEROL 0.5-3(2.5)MG/3ML NEB HHN SCH ×3 (02:00→21:26)
[2019-09-01] MEDS: SODIUM CHLORIDE 0.45% 1,000 ML IV SCH ×2 (03:24→20:20)
[2019-09-01] MEDS: VANCOMYCIN HCL 1000 MG/20 ML ORAL PO SCH ×4 (06:03→23:53)
[2019-09-01] MEDS: GUAIFENESIN/CODEINE 200-20MG/10ML UDC PO PRN (06:46)
[2019-09-01] MEDS: BUDESONIDE 0.5MG/2ML NEB HHN SCH ×2 (08:00→21:26)
[2019-09-01] MEDS ORDERED: HETASTARCH/NORMAL SALINE 500 ML PLAST..BAG IV ONE (08:45)
[2019-09-01] MEDS: ENOXAPARIN 40MG/0.4ML SYR SUBCUT SCH (09:00)
[2019-09-01] MEDS: METOPROLOL TARTRATE 25MG TABLET PO SCH ×2 (09:00→21:00)
[2019-09-01] MEDS: MAGNESIUM OXIDE 400MG TABLET PO SCH ×2 (09:00→17:20)
[2019-09-01] MEDS: FAMOTIDINE 20MG TABLET PO SCH (09:01)
[2019-09-01] MEDS ORDERED: HETASTARCH/NORMAL SALINE 250 ML IV ONE (10:00)
[2019-09-01] MEDS: LEVOFLOXACIN 500MG TABLET PO SCH (11:43)
[2019-09-01 14:41] LABS: BASOPHILS % 1.3 % (0.0-2.0); EOSINOPHILS % 2.4 % (0.0-5.0); LYMPHOCYTES % 9.1 % (20.0-50.0); MEAN CORPUSCULAR HEMOGLOBIN 31.7 pg (28.0-32.0); MEAN CORPUSCULAR VOLUME 94.7 fL (80.0-94.0); MEAN PLATELET VOLUME 7.9 fl (7.4-10.4); MONOCYTES % 11.1 % (2.0-8.0); NEUTROPHILS % 76.1 % (40.0-76.0); PLATELET 156 x1000/uL (130-400); RED BLOOD CELL COUNT 2.01 mill/uL (4.7-6.1); RED CELL DISTRIBUTION WIDTH 16.5 % (11.6-14.6)
[2019-09-01 14:55] LABS: HEMOGLOBIN. 6.4 g/dL (14.0-18.0)
[2019-09-01 16:08] LABS: HEMATOCRIT 20.5 % (42.0-52.0); HEMOGLOBIN 6.9 g/dL (14.0-18.0)
[2019-09-01 18:15] LABS: TOTAL IRON BINDING CAPACITY 33 ug/dL (250-450)
[2019-09-01] MEDS ORDERED: PIPERACILLIN/TAZOBACTAM 3.375 G in DEXT 5% WATER 100 ML IV SCH (18:30)
[2019-09-01] MEDS ORDERED: VANCOMYCIN 1 G PREMIX 200 ML IV SCH (21:00)
[2019-09-01] MEDS ORDERED: SODIUM CHLORIDE 0.9% 1,000 ML IV ONE (21:00)
[2019-09-01] MEDS: LORAZEPAM 1MG TABLET PO PRN (21:04)
[2019-09-01] MEDS ORDERED: ACETAMINOPHEN 325MG TABLET PO NR (21:15)
[2019-09-01] MEDS: CEFEPIME 1,000 MG in DEXTROSE 5% WATER 50 ML IV SCH (23:00)
[2019-09-02] VITALS: BP 101/68
[2019-09-02] MEDS: IPRATROPIUM/ALBUTEROL 0.5-3(2.5)MG/3ML NEB HHN SCH ×3 (02:27→13:04)
[2019-09-02 03:22] LABS: CLARITY URINE CLEAR (CLEAR); COLOR URINE YELLOW (YELLOW); KETONES URINE NEGATIVE (NEGATIVE); LEUKOCYTE ESTERASE URINE NEGATIVE (NEGATIVE); NITRITE URINE NEGATIVE (NEGATIVE); OCCULT BLOOD URINE NEGATIVE (NEGATIVE); PH URINE 5.5 (4.5-8.0); PROTEIN URINE NEGATIVE (NEGATIVE); SPECIFIC GRAVITY URINE 1.012 (1.005-1.030); UROBILINOGEN URINE 0.2 E.U./dL (0.2-1.0)
[2019-09-02 04:00] VITALS: BP 109/66
[2019-09-02] MEDS: LORAZEPAM 1MG TABLET PO PRN (04:04)
[2019-09-02 07:07] LABS: BASOPHILS % 1.1 % (0.0-2.0); EOSINOPHILS % 2.9 % (0.0-5.0); HEMOGLOBIN. 7.6 g/dL (14.0-18.0); LYMPHOCYTES % 8.2 % (20.0-50.0); MEAN CORPUSCULAR HEMOGLOBIN 31.3 pg (28.0-32.0); MEAN CORPUSCULAR VOLUME 94.5 fL (80.0-94.0); MEAN PLATELET VOLUME 8.1 fl (7.4-10.4); MONOCYTES % 10.5 % (2.0-8.0); NEUTROPHILS % 77.3 % (40.0-76.0); PLATELET 161 x1000/uL (130-400); RED BLOOD CELL COUNT 2.44 mill/uL (4.7-6.1); RED CELL DISTRIBUTION WIDTH 16.5 % (11.6-14.6)
[2019-09-02] MEDS: VANCOMYCIN HCL 1000 MG/20 ML ORAL PO SCH ×2 (07:14→12:27)
[2019-09-02 07:50] VITALS: BP 106/62
[2019-09-02] MEDS: METOPROLOL TARTRATE 25MG TABLET PO SCH (08:56)
[2019-09-02] MEDS: FAMOTIDINE 20MG TABLET PO SCH (08:56)
[2019-09-02 13:37] LABS: HEMATOCRIT 23.3 % (42.0-52.0); HEMOGLOBIN 7.7 g/dL (14.0-18.0); MEAN CORPUSCULAR HEMOGLOBIN 31.4 pg (28.0-32.0); PLATELET 159 x1000/uL (130-400); RED BLOOD CELL COUNT 2.45 mill/uL (4.7-6.1); RED CELL DISTRIBUTION WIDTH 16.2 % (11.6-14.6)
[2019-09-02 13:38] VITALS: BP 106/62
[2019-09-02] MEDS ORDERED: LEVOFLOXACIN 500MG PREMIX 100 ML IV SCH (14:15)
[2019-09-02] MEDS ORDERED: ALBUMIN HUMAN 25GM/100ML (25%) IV SCH (14:30)
[2019-09-02 14:33] LABS: BG BASE EXCESS 1.2 mmol/L (-2.0-2.0); BG CARBOXYHEMOGLOBIN 0.4 % (0.5-1.5); BG DEOXYHEMOGLOBIN 7.3 % (0.0-5.0); BG FRACTION INSPIRED OXYGEN 21; BG HCO3 ACT 26.2 mmol/L (22.0-26.0); BG METHEMOGLOBIN 0.3 % (0.0-1.5); BG OXYGEN SATURATION 92.6 % (92.0-98.5); BG PCO2 43.2 mmHg (35.0-45.0); BG PH 7.401 (7.350-7.450); BG PO2 65.6 mmHg (75.0-100.0); BG SAMPLE SITE RIGHT RADIAL; BG TOTAL HEMOGLOBIN 11.1 g/dL (12.0-18.0); BG VENT MODE ROOM AIR
[2019-09-02] MEDS ORDERED: MAGNESIUM 2 G PREMIX 50 ML IV SCH (15:00)
[2019-09-02] MEDS ORDERED: LINEZOLID 600MG TABLET PO SCH (21:00)
== END 2019-09-02 14:45 | disposition short-term general hospital (02) | DRG 73 ==
PROVIDERS: ADMIT Physical Medicine & Rehabilitation Spinal Cord Injury Medicine; ATTEND Family Medicine Adult Medicine
DX: G62.81 Critical illness polyneuropathy (principal); A41.9 Sepsis, unspecified organism; G93.41 Metabolic encephalopathy; E43 Unspecified severe protein-calorie malnutrition; J18.9 Pneumonia, unspecified organism; J96.01 Acute respiratory failure with hypoxia; J96.02 Acute respiratory failure with hypercapnia; J91.8 Pleural effusion in other conditions classified elsewhere; J44.1 Chronic obstructive pulmonary disease with (acute) exacerbation; J44.0 Chronic obstructive pulmonary disease with (acute) lower respiratory infection; I82.432 Acute embolism and thrombosis of left popliteal vein; K52.1 Toxic gastroenteritis and colitis; N17.9 Acute kidney failure, unspecified; R53.81 Other malaise; D64.9 Anemia, unspecified; D69.6 Thrombocytopenia, unspecified; F17.200 Nicotine dependence, unspecified, uncomplicated; F32.9 Major depressive disorder, single episode, unspecified; F41.9 Anxiety disorder, unspecified; G62.9 Polyneuropathy, unspecified; I10 Essential (primary) hypertension; I95.1 Orthostatic hypotension; K70.30 Alcoholic cirrhosis of liver without ascites; L89.159 Pressure ulcer of sacral region, unspecified stage; R13.10 Dysphagia, unspecified; T36.95XA Adverse effect of unspecified systemic antibiotic, initial encounter
CPT/HCPCS: 36415; 36600; 71045; 76770; 80048; 80053; 80202; 81003; 82140; 82306; 82375; 82550; 82607; 82728; 82805; 83540; 83550; 83735; 84100; 84134; 84153; 84443; 85014; 85018; 85025; 85027; 86078; 86850; 86900; 86920; 87070; 92523; 93970; 94640; 97110; 97116; 97162; 97166; 97530; 97535; A6261; C1893; J0692; J1650; J1956; J3370; J3475; J7040; J7060; J7131; J7620; J7626; P9016; P9047; G0103

== ENCOUNTER 2019-09-02 15:28 | Inpatient (IN) | payer BC ==
[~2019-09-02] VITALS: Ht 160 cm; Wt 78.5 kg
[2019-09-02 16:00] VITALS: BP 100/64
[2019-09-02 16:11] VITALS: BP 100/64
[2019-09-02] MEDS: VANCOMYCIN HCL 1000 MG/20 ML ORAL PO SCH ×2 (18:03→23:23)
[2019-09-02 20:00] VITALS: BP 115/72
[2019-09-02] MEDS ORDERED: IPRATROPIUM/ALBUTEROL 0.5-3(2.5)MG/3ML NEB HHN PRN (20:00)
[2019-09-02] MEDS: CEFEPIME 1,000 MG in DEXTROSE 5% WATER 50 ML IV SCH (20:41)
[2019-09-02] MEDS: IPRATROPIUM/ALBUTEROL 0.5-3(2.5)MG/3ML NEB HHN SCH (21:08)
[2019-09-03] VITALS: BP 110/70
[2019-09-03] MEDS: GUAIFENESIN/CODEINE 200-20MG/10ML UDC PO PRN (00:38)
[2019-09-03] MEDS: IPRATROPIUM/ALBUTEROL 0.5-3(2.5)MG/3ML NEB HHN SCH ×6 (00:42→21:45)
[2019-09-03 04:00] VITALS: BP 105/67
[2019-09-03] MEDS: VANCOMYCIN HCL 1000 MG/20 ML ORAL PO SCH ×4 (06:04→23:55)
[2019-09-03 07:40] LABS: EOSINOPHILS % 2.3 % (0.0-5.0); HEMATOCRIT. 22.9 % (42.0-52.0); HEMOGLOBIN. 7.8 g/dL (14.0-18.0); LYMPHOCYTES % 11.9 % (20.0-50.0); MEAN CORPUSCULAR HEMOGLOBIN 31.9 pg (28.0-32.0); MEAN CORPUSCULAR VOLUME 94.4 fL (80.0-94.0); MEAN PLATELET VOLUME 8.5 fl (7.4-10.4); MONOCYTES % 12.1 % (2.0-8.0); NEUTROPHILS % 72.7 % (40.0-76.0); PLATELET 150 x1000/uL (130-400); RED BLOOD CELL COUNT 2.43 mill/uL (4.7-6.1); RED CELL DISTRIBUTION WIDTH 16.3 % (11.6-14.6)
[2019-09-03 08:00] VITALS: BP 106/69
[2019-09-03] MEDS: METOPROLOL TARTRATE 25MG TABLET PO SCH ×2 (09:00→20:32)
[2019-09-03] MEDS ORDERED: MAGNESIUM 4 G PREMIX 100 ML IV SCH (10:00)
[2019-09-03 12:00] VITALS: BP 110/74
[2019-09-03] MEDS: ENOXAPARIN 40MG/0.4ML SYR SUBCUT SCH (13:20)
[2019-09-03 16:00] VITALS: BP 96/57
[2019-09-03 20:00] VITALS: BP 94/58
[2019-09-03] MEDS: ACETAMINOPHEN 325MG TABLET PO PRN (20:36)
[2019-09-03] MEDS: CEFEPIME 1,000 MG in DEXTROSE 5% WATER 50 ML IV SCH (20:36)
[2019-09-04] VITALS: BP 97/56
[2019-09-04] MEDS: IPRATROPIUM/ALBUTEROL 0.5-3(2.5)MG/3ML NEB HHN SCH ×7 (00:34→21:20)
[2019-09-04] MEDS: GUAIFENESIN/CODEINE 200-20MG/10ML UDC PO PRN ×2 (01:30→21:22)
[2019-09-04] MEDS: LORAZEPAM 2MG/ML CPJ IV PRN (01:59)
[2019-09-04 04:00] VITALS: BP 99/55
[2019-09-04] MEDS: VANCOMYCIN HCL 1000 MG/20 ML ORAL PO SCH ×4 (05:15→23:43)
[2019-09-04 06:53] LABS: BASOPHILS % 1.2 % (0.0-2.0); EOSINOPHILS % 2.8 % (0.0-5.0); HEMATOCRIT. 24.7 % (42.0-52.0); HEMOGLOBIN. 8.2 g/dL (14.0-18.0); LYMPHOCYTES % 12.7 % (20.0-50.0); MEAN CORPUSCULAR HEMOGLOBIN 31.3 pg (28.0-32.0); MEAN CORPUSCULAR VOLUME 94.6 fL (80.0-94.0); MEAN PLATELET VOLUME 8.2 fl (7.4-10.4); MONOCYTES % 12.9 % (2.0-8.0); NEUTROPHILS % 70.4 % (40.0-76.0); PLATELET 146 x1000/uL (130-400); RED BLOOD CELL COUNT 2.61 mill/uL (4.7-6.1); RED CELL DISTRIBUTION WIDTH 16.4 % (11.6-14.6)
[2019-09-04 08:00] VITALS: BP 108/52
[2019-09-04] MEDS: METOPROLOL TARTRATE 25MG TABLET PO SCH ×2 (08:39→21:00)
[2019-09-04] MEDS: ENOXAPARIN 40MG/0.4ML SYR SUBCUT SCH (08:43)
[2019-09-04 08:46] LABS: PHOSPHORUS 3.5 mg/dL (2.5-4.9)
[2019-09-04 12:00] VITALS: BP 90/49
[2019-09-04] MEDS ORDERED: MAGNESIUM 2 G PREMIX 50 ML IV SCH (12:00)
[2019-09-04] MEDS ORDERED: TRAZODONE HCL 50MG TABLET PO PRN (12:15)
[2019-09-04] MEDS: ACETAMINOPHEN 325MG TABLET PO PRN (12:31)
[2019-09-04 16:00] VITALS: BP 91/50
[2019-09-04 20:00] VITALS: BP 104/42
[2019-09-04] MEDS: CEFEPIME 1,000 MG in DEXTROSE 5% WATER 50 ML IV SCH (21:22)
[2019-09-05] VITALS: BP 96/56
[2019-09-05] MEDS: IPRATROPIUM/ALBUTEROL 0.5-3(2.5)MG/3ML NEB HHN SCH ×5 (01:04→15:36)
[2019-09-05 04:00] VITALS: BP 106/67
[2019-09-05] MEDS: VANCOMYCIN HCL 1000 MG/20 ML ORAL PO SCH ×3 (06:23→18:18)
[2019-09-05 06:47] LABS: BASOPHILS % 1.1 % (0.0-2.0); EOSINOPHILS % 1.9 % (0.0-5.0); HEMATOCRIT. 25.9 % (42.0-52.0); HEMOGLOBIN. 8.7 g/dL (14.0-18.0); LYMPHOCYTES % 7.9 % (20.0-50.0); MEAN CORPUSCULAR HEMOGLOBIN 32.1 pg (28.0-32.0); MEAN CORPUSCULAR VOLUME 95.5 fL (80.0-94.0); MEAN PLATELET VOLUME 8.7 fl (7.4-10.4); MONOCYTES % 12.2 % (2.0-8.0); NEUTROPHILS % 76.9 % (40.0-76.0); PLATELET 177 x1000/uL (130-400); RED BLOOD CELL COUNT 2.72 mill/uL (4.7-6.1); RED CELL DISTRIBUTION WIDTH 16.5 % (11.6-14.6)
[2019-09-05 07:29] LABS: PHOSPHORUS 3.5 mg/dL (2.5-4.9)
[2019-09-05 08:00] VITALS: BP 95/55
[2019-09-05] MEDS: METOPROLOL TARTRATE 25MG TABLET PO SCH ×2 (08:17→20:15)
[2019-09-05] MEDS: ENOXAPARIN 40MG/0.4ML SYR SUBCUT SCH (08:18)
[2019-09-05] MEDS ORDERED: IOHEXOL-350 100 ML BOTTLE ONE (11:34)
[2019-09-05 12:00] VITALS: BP 94/58
[2019-09-05 16:00] VITALS: BP 102/72
[2019-09-05 20:00] VITALS: BP 106/65
[2019-09-05] MEDS: GUAIFENESIN/CODEINE 200-20MG/10ML UDC PO PRN (21:40)
[2019-09-06] VITALS (7 sets, daily range): BP systolic 95–112; BP diastolic 56–67
[2019-09-06] MEDS: VANCOMYCIN HCL 1000 MG/20 ML ORAL PO SCH ×4 (00:08→18:12)
[2019-09-06] MEDS: IPRATROPIUM/ALBUTEROL 0.5-3(2.5)MG/3ML NEB HHN SCH ×6 (01:17→20:23)
[2019-09-06 06:30] LABS: BASOPHILS % 0.9 % (0.0-2.0); EOSINOPHILS % 1.4 % (0.0-5.0); HEMATOCRIT. 26.6 % (42.0-52.0); LYMPHOCYTES % 10.4 % (20.0-50.0); MEAN CORPUSCULAR HEMOGLOBIN 31.8 pg (28.0-32.0); MEAN CORPUSCULAR VOLUME 94.3 fL (80.0-94.0); MEAN PLATELET VOLUME 8.2 fl (7.4-10.4); MONOCYTES % 12.9 % (2.0-8.0); NEUTROPHILS % 74.4 % (40.0-76.0); PLATELET 192 x1000/uL (130-400); RED BLOOD CELL COUNT 2.82 mill/uL (4.7-6.1); RED CELL DISTRIBUTION WIDTH 16.7 % (11.6-14.6)
[2019-09-06] MEDS: METOPROLOL TARTRATE 25MG TABLET PO SCH (09:00)
[2019-09-06] MEDS ORDERED: SODIUM CHLORIDE 0.9% 250 ML IV ONE (09:00)
[2019-09-06] MEDS: ENOXAPARIN 40MG/0.4ML SYR SUBCUT SCH (09:02)
[2019-09-06] MEDS ORDERED: SODIUM CHLORIDE 0.9% 500 ML IV ONE (11:30)
[2019-09-06] MEDS: GUAIFENESIN/CODEINE 200-20MG/10ML UDC PO PRN (11:40)
[2019-09-06] MEDS: SODIUM CHLORIDE 0.9% 1,000 ML IV SCH (13:30)
[2019-09-06] MEDS ORDERED: METOPROLOL TARTRATE 25MG TABLET PO SCH (21:00)
[2019-09-07 00:05] VITALS: BP 105/61
[2019-09-07] MEDS: VANCOMYCIN HCL 1000 MG/20 ML ORAL PO SCH ×5 (00:10→23:23)
[2019-09-07] MEDS: IPRATROPIUM/ALBUTEROL 0.5-3(2.5)MG/3ML NEB HHN SCH ×6 (02:06→21:34)
[2019-09-07 04:00] VITALS: BP 106/60
[2019-09-07] MEDS: SODIUM CHLORIDE 0.9% 1,000 ML IV SCH ×2 (04:30→15:03)
[2019-09-07 08:00] VITALS: BP 90/51
[2019-09-07] MEDS: ENOXAPARIN 40MG/0.4ML SYR SUBCUT SCH (08:23)
[2019-09-07 12:00] VITALS: BP 97/59
[2019-09-07] MEDS: LORAZEPAM 2MG/ML CPJ IV PRN (15:02)
[2019-09-07 20:00] VITALS: BP 116/73
[2019-09-08 00:05] VITALS: BP 120/75
[2019-09-08] MEDS: IPRATROPIUM/ALBUTEROL 0.5-3(2.5)MG/3ML NEB HHN SCH ×6 (00:54→21:33)
[2019-09-08] MEDS: SODIUM CHLORIDE 0.9% 1,000 ML IV SCH ×2 (02:28→17:45)
[2019-09-08 04:00] VITALS: BP 106/59
[2019-09-08] MEDS: VANCOMYCIN HCL 1000 MG/20 ML ORAL PO SCH ×3 (05:36→18:03)
[2019-09-08 06:55] LABS: BASOPHILS % 1.5 % (0.0-2.0); HEMATOCRIT. 26.5 % (42.0-52.0); HEMOGLOBIN. 8.7 g/dL (14.0-18.0); LYMPHOCYTES % 8.1 % (20.0-50.0); MEAN CORPUSCULAR HEMOGLOBIN 31.2 pg (28.0-32.0); MEAN CORPUSCULAR VOLUME 94.8 fL (80.0-94.0); MEAN PLATELET VOLUME 7.9 fl (7.4-10.4); MONOCYTES % 10.1 % (2.0-8.0); NEUTROPHILS % 79.3 % (40.0-76.0); PLATELET 275 x1000/uL (130-400); RED CELL DISTRIBUTION WIDTH 16.6 % (11.6-14.6)
[2019-09-08 08:00] VITALS: BP 117/74
[2019-09-08] MEDS: ENOXAPARIN 40MG/0.4ML SYR SUBCUT SCH (08:25)
[2019-09-08 12:00] VITALS: BP 125/68
[2019-09-08] MEDS ORDERED: LORAZEPAM 2MG/ML CPJ IV PRN (15:45)
[2019-09-08 16:00] VITALS: BP 120/70
[2019-09-08 19:30] VITALS: BP 109/68
[2019-09-09 00:05] VITALS: BP 118/74
[2019-09-09] MEDS: VANCOMYCIN HCL 1000 MG/20 ML ORAL PO SCH ×4 (00:25→18:31)
[2019-09-09] MEDS: IPRATROPIUM/ALBUTEROL 0.5-3(2.5)MG/3ML NEB HHN SCH ×6 (01:24→21:21)
[2019-09-09] MEDS: SODIUM CHLORIDE 0.9% 1,000 ML IV SCH ×2 (03:37→15:39)
[2019-09-09 04:00] VITALS: BP 108/68
[2019-09-09 06:23] LABS: BASOPHILS % 1.3 % (0.0-2.0); EOSINOPHILS % 1.6 % (0.0-5.0); HEMATOCRIT. 25.6 % (42.0-52.0); HEMOGLOBIN. 8.3 g/dL (14.0-18.0); LYMPHOCYTES % 10.2 % (20.0-50.0); MEAN CORPUSCULAR HEMOGLOBIN 30.5 pg (28.0-32.0); MEAN CORPUSCULAR VOLUME 93.9 fL (80.0-94.0); MEAN PLATELET VOLUME 8.2 fl (7.4-10.4); MONOCYTES % 10.5 % (2.0-8.0); NEUTROPHILS % 76.4 % (40.0-76.0); PLATELET 256 x1000/uL (130-400); RED BLOOD CELL COUNT 2.73 mill/uL (4.7-6.1); RED CELL DISTRIBUTION WIDTH 16.8 % (11.6-14.6)
[2019-09-09 08:00] VITALS: BP 111/83
[2019-09-09] MEDS: LORAZEPAM 2MG/ML CPJ IV PRN ×2 (08:59→15:17)
[2019-09-09] MEDS: ENOXAPARIN 40MG/0.4ML SYR SUBCUT SCH (10:02)
[2019-09-09 11:43] LABS: BG BASE EXCESS -1.9 mmol/L (-2.0-2.0); BG CARBOXYHEMOGLOBIN 0.3 % (0.5-1.5); BG DEOXYHEMOGLOBIN 7.9 % (0.0-5.0); BG FRACTION INSPIRED OXYGEN 28; BG HCO3 ACT 22.7 mmol/L (22.0-26.0); BG METHEMOGLOBIN 0.3 % (0.0-1.5); BG OXYGEN SATURATION 92.1 % (92.0-98.5); BG OXYHEMOGLOBIN 91.5 % (94.0-97.0); BG PCO2 37.9 mmHg (35.0-45.0); BG PH 7.396 (7.350-7.450); BG PO2 70.2 mmHg (75.0-100.0); BG SAMPLE SITE RIGHT BRACHIAL; BG TOTAL HEMOGLOBIN 8.8 g/dL (12.0-18.0); BG VENT MODE NASAL CANNULA
[2019-09-09 12:00] VITALS: BP 108/75
[2019-09-09] MEDS ORDERED: LEVOFLOXACIN 500MG PREMIX 100 ML IV NR (13:00)
[2019-09-09 16:00] VITALS: BP 135/66
[2019-09-09 20:00] VITALS: BP 121/81
[2019-09-09] MEDS: GUAIFENESIN/CODEINE 200-20MG/10ML UDC PO PRN (23:17)
[2019-09-10 00:02] VITALS: BP 98/74
[2019-09-10] MEDS: IPRATROPIUM/ALBUTEROL 0.5-3(2.5)MG/3ML NEB HHN SCH ×5 (01:25→21:55)
[2019-09-10 04:00] VITALS: BP 110/76
[2019-09-10] MEDS: SODIUM CHLORIDE 0.9% 1,000 ML IV SCH ×2 (04:19→19:33)
[2019-09-10 08:00] VITALS: BP 116/78
[2019-09-10] MEDS: ENOXAPARIN 40MG/0.4ML SYR SUBCUT SCH (08:33)
[2019-09-10 09:07] LABS: EOSINOPHILS % 1.7 % (0.0-5.0); HEMATOCRIT. 24.6 % (42.0-52.0); HEMOGLOBIN. 8.1 g/dL (14.0-18.0); LYMPHOCYTES % 10.8 % (20.0-50.0); MEAN CORPUSCULAR VOLUME 94.6 fL (80.0-94.0); MEAN PLATELET VOLUME 7.3 fl (7.4-10.4); MONOCYTES % 9.8 % (2.0-8.0); NEUTROPHILS % 76.7 % (40.0-76.0); PLATELET 185 x1000/uL (130-400); RED CELL DISTRIBUTION WIDTH 16.5 % (11.6-14.6)
[2019-09-10] MEDS ORDERED: LOPERAMIDE HCL 2MG CAPSULE PO NR (11:15)
[2019-09-10 12:00] VITALS: BP 120/79
[2019-09-10] MEDS: LEVOFLOXACIN 250MG PREMIX 50 ML IV SCH (12:21)
[2019-09-10] MEDS ORDERED: LOPERAMIDE HCL 2MG CAPSULE PO PRN (13:00)
[2019-09-10 16:00] VITALS: BP 96/61
[2019-09-10] MEDS ORDERED: SIMETHICONE 80MG TABLET CHEW PO PRN (19:45)
[2019-09-10] MEDS: GUAIFENESIN/CODEINE 200-20MG/10ML UDC PO PRN (20:59)
[2019-09-10] MEDS: ONDANSETRON HCL 4MG/2ML INJ IV PRN (21:46)
[2019-09-11] VITALS: BP 105/67
[2019-09-11] MEDS: IPRATROPIUM/ALBUTEROL 0.5-3(2.5)MG/3ML NEB HHN SCH ×6 (01:17→20:00)
[2019-09-11 04:00] VITALS: BP 99/61
[2019-09-11 06:30] LABS: BASOPHILS % 0.9 % (0.0-2.0); EOSINOPHILS % 0.5 % (0.0-5.0); HEMATOCRIT. 25.7 % (42.0-52.0); HEMOGLOBIN. 8.3 g/dL (14.0-18.0); LYMPHOCYTES % 8.2 % (20.0-50.0); MEAN CORPUSCULAR HEMOGLOBIN 30.6 pg (28.0-32.0); MEAN PLATELET VOLUME 7.7 fl (7.4-10.4); MONOCYTES % 8.6 % (2.0-8.0); NEUTROPHILS % 81.8 % (40.0-76.0); PLATELET 202 x1000/uL (130-400); RED BLOOD CELL COUNT 2.73 mill/uL (4.7-6.1); RED CELL DISTRIBUTION WIDTH 16.7 % (11.6-14.6)
[2019-09-11 08:00] VITALS: BP 102/60
[2019-09-11] MEDS: ENOXAPARIN 40MG/0.4ML SYR SUBCUT SCH (08:46)
[2019-09-11] MEDS: SODIUM CHLORIDE 0.45% 1,000 ML IV SCH (08:47)
[2019-09-11] MEDS ORDERED: DIATR MEGLU/DIATRIZOATE SOLN 30ML PO NR (10:30)
[2019-09-11 12:00] VITALS: BP 97/59
[2019-09-11] MEDS: LEVOFLOXACIN 250MG PREMIX 50 ML IV SCH (12:05)
[2019-09-11] MEDS: METOCLOPRAMIDE HCL 10MG/2ML VIAL IV SCH ×2 (12:05→18:00)
[2019-09-11 12:35] LABS: CREATINE KINASE 29 IU/L (39-308)
[2019-09-11 16:00] VITALS: BP 105/61
[2019-09-11 20:00] VITALS: BP 127/77
[2019-09-12] VITALS (7 sets, daily range): BP systolic 100–131; BP diastolic 60–85
[2019-09-12] MEDS: IPRATROPIUM/ALBUTEROL 0.5-3(2.5)MG/3ML NEB HHN SCH ×7 (00:06→20:41)
[2019-09-12] MEDS: METOCLOPRAMIDE HCL 10MG/2ML VIAL IV SCH ×2 (00:34→05:12)
[2019-09-12] MEDS: SODIUM CHLORIDE 0.45% 1,000 ML IV SCH (03:30)
[2019-09-12 06:40] LABS: HEMOGLOBIN. 9.8 g/dL (14.0-18.0); MEAN CORPUSCULAR HEMOGLOBIN 30.6 pg (28.0-32.0); MEAN CORPUSCULAR VOLUME 93.6 fL (80.0-94.0); MEAN PLATELET VOLUME 8.6 fl (7.4-10.4); PLATELET 355 x1000/uL (130-400); RED BLOOD CELL COUNT 3.21 mill/uL (4.7-6.1); RED CELL DISTRIBUTION WIDTH 16.8 % (11.6-14.6)
[2019-09-12 07:03] LABS: HEPATITIS B SURFACE ANTIGEN NEGATIVE
[2019-09-12 07:33] LABS: HEPATITIS A AB IGM NEGATIVE (NEGATIVE)
[2019-09-12] MEDS: ONDANSETRON HCL 4MG/2ML INJ IV PRN (09:35)
[2019-09-12] MEDS: ENOXAPARIN 40MG/0.4ML SYR SUBCUT SCH (09:35)
[2019-09-12] MEDS: LEVOFLOXACIN 250MG PREMIX 50 ML IV SCH (13:09)
[2019-09-12 13:27] LABS: PLATELET ESTIMATE NORMAL
[2019-09-12] MEDS ORDERED: IOHEXOL-350 100 ML BOTTLE ONE (14:07)
[2019-09-12] MEDS: MEROPENEM 500 MG in SODIUM CHLORIDE 0.9% 50 ML IV SCH (17:02)
[2019-09-13] VITALS (13 sets, daily range): BP systolic 91–154; BP diastolic 57–77
[2019-09-13] MEDS: IPRATROPIUM/ALBUTEROL 0.5-3(2.5)MG/3ML NEB HHN SCH ×4 (00:33→21:14)
[2019-09-13] MEDS: SODIUM CHLORIDE 0.45% 1,000 ML IV SCH ×3 (01:27→20:27)
[2019-09-13] MEDS: MEROPENEM 500 MG in SODIUM CHLORIDE 0.9% 50 ML IV SCH ×2 (06:00→17:41)
[2019-09-13 07:18] LABS: HEMATOCRIT. 26.1 % (42.0-52.0); HEMOGLOBIN. 8.8 g/dL (14.0-18.0); MEAN CORPUSCULAR HEMOGLOBIN 31.4 pg (28.0-32.0); MEAN CORPUSCULAR VOLUME 93.6 fL (80.0-94.0); MEAN PLATELET VOLUME 8.7 fl (7.4-10.4); PLATELET 240 x1000/uL (130-400); RED BLOOD CELL COUNT 2.79 mill/uL (4.7-6.1); RED CELL DISTRIBUTION WIDTH 17.2 % (11.6-14.6)
[2019-09-13] MEDS: ENOXAPARIN 40MG/0.4ML SYR SUBCUT SCH (08:54)
[2019-09-13 09:12] LABS: BG BASE EXCESS 8.1 mmol/L (-2.0-2.0); BG CARBOXYHEMOGLOBIN 0.3 % (0.5-1.5); BG DEOXYHEMOGLOBIN 7.1 % (0.0-5.0); BG HCO3 ACT 32.6 mmol/L (22.0-26.0); BG METHEMOGLOBIN 0.5 % (0.0-1.5); BG OXYGEN SATURATION 92.8 % (92.0-98.5); BG OXYHEMOGLOBIN 92.1 % (94.0-97.0); BG PCO2 45.9 mmHg (35.0-45.0); BG PH 7.469 (7.350-7.450); BG PO2 70.6 mmHg (75.0-100.0); BG SAMPLE SITE RIGHT BRACHIAL; BG TOTAL HEMOGLOBIN 8.3 g/dL (12.0-18.0); BG VENT MODE NASAL CANNULA
[2019-09-13 11:15] LABS: PLATELET ESTIMATE NORMAL
[2019-09-14] VITALS (11 sets, daily range): BP systolic 94–118; BP diastolic 53–74
[2019-09-14] MEDS: ACETYLCYSTEINE 100MG/ML 10% VIAL 4ML INH SCH ×2 (02:58→16:55)
[2019-09-14] MEDS: IPRATROPIUM/ALBUTEROL 0.5-3(2.5)MG/3ML NEB HHN SCH ×4 (03:00→21:17)
[2019-09-14] MEDS: SODIUM CHLORIDE 0.45% 1,000 ML IV SCH ×2 (06:37→15:21)
[2019-09-14] MEDS: MEROPENEM 500 MG in SODIUM CHLORIDE 0.9% 50 ML IV SCH ×2 (06:57→18:16)
[2019-09-14] MEDS: ENOXAPARIN 30MG/0.3ML SYR SUBCUT SCH (08:40)
[2019-09-14 21:20] LABS: CREATINE KINASE 74 IU/L (39-308)
[2019-09-15] VITALS (13 sets, daily range): BP systolic 92–124; BP diastolic 45–86
[2019-09-15] MEDS: SODIUM CHLORIDE 0.45% 1,000 ML IV SCH ×4 (00:12→20:56)
[2019-09-15] MEDS: ACETYLCYSTEINE 100MG/ML 10% VIAL 4ML INH SCH ×4 (01:50→16:03)
[2019-09-15] MEDS: IPRATROPIUM/ALBUTEROL 0.5-3(2.5)MG/3ML NEB HHN SCH ×4 (02:19→20:27)
[2019-09-15] MEDS: MEROPENEM 500 MG in SODIUM CHLORIDE 0.9% 50 ML IV SCH ×2 (05:25→17:20)
[2019-09-15 07:34] LABS: HEMATOCRIT. 22.5 % (42.0-52.0); HEMOGLOBIN. 7.4 g/dL (14.0-18.0); MEAN CORPUSCULAR VOLUME 93.7 fL (80.0-94.0); MEAN PLATELET VOLUME 8.7 fl (7.4-10.4); PLATELET 138 x1000/uL (130-400); RED CELL DISTRIBUTION WIDTH 17.2 % (11.6-14.6)
[2019-09-15] MEDS: ENOXAPARIN 30MG/0.3ML SYR SUBCUT SCH (08:39)
[2019-09-15] MEDS: LORAZEPAM 2MG/ML CPJ IV PRN (14:06)
[2019-09-15 15:45] LABS: SODIUM URINE RANDOM < 5 mEq/L
[2019-09-16] VITALS (17 sets, daily range): BP systolic 89–113; BP diastolic 50–76
[2019-09-16] MEDS: IPRATROPIUM/ALBUTEROL 0.5-3(2.5)MG/3ML NEB HHN SCH ×4 (01:50→20:15)
[2019-09-16] MEDS: SODIUM CHLORIDE 0.45% 1,000 ML IV SCH ×3 (04:56→21:07)
[2019-09-16] MEDS: MEROPENEM 500 MG in SODIUM CHLORIDE 0.9% 50 ML IV SCH ×2 (06:21→21:06)
[2019-09-16 06:24] LABS: HEMATOCRIT. 22.9 % (42.0-52.0); HEMOGLOBIN. 7.6 g/dL (14.0-18.0); MEAN CORPUSCULAR HEMOGLOBIN 31.1 pg (28.0-32.0); MEAN CORPUSCULAR VOLUME 93.5 fL (80.0-94.0); MEAN PLATELET VOLUME 8.2 fl (7.4-10.4); PLATELET 133 x1000/uL (130-400); RED BLOOD CELL COUNT 2.45 mill/uL (4.7-6.1); RED CELL DISTRIBUTION WIDTH 17.1 % (11.6-14.6)
[2019-09-16] MEDS: ACETYLCYSTEINE 100MG/ML 10% VIAL 4ML INH SCH ×2 (07:55→15:08)
[2019-09-16] MEDS: SUCRALFATE 1 G/10 ML UDC PO SCH ×4 (09:21→21:07)
[2019-09-16] MEDS: PANTOPRAZOLE SODIUM 40 MG/VIAL IV SCH (09:21)
[2019-09-16 12:57] LABS: BG BASE EXCESS 1.4 mmol/L (-2.0-2.0); BG CARBOXYHEMOGLOBIN 0.3 % (0.5-1.5); BG DEOXYHEMOGLOBIN 5.6 % (0.0-5.0); BG FRACTION INSPIRED OXYGEN 40; BG HCO3 ACT 26.1 mmol/L (22.0-26.0); BG METHEMOGLOBIN 0.3 % (0.0-1.5); BG OXYGEN SATURATION 94.4 % (92.0-98.5); BG OXYHEMOGLOBIN 93.8 % (94.0-97.0); BG PCO2 41.3 mmHg (35.0-45.0); BG PH 7.418 (7.350-7.450); BG PO2 84.7 mmHg (75.0-100.0); BG SAMPLE SITE RIGHT RADIAL; BG TOTAL HEMOGLOBIN 8.5 g/dL (12.0-18.0); BG VENT MODE NASAL CANNULA
[2019-09-16 14:32] LABS: PLATELET ESTIMATE NORMAL
[2019-09-16 14:36] LABS: PLATELET ESTIMATE NORMAL
[2019-09-16 20:25] LABS: HEMATOCRIT 27.4 % (42.0-52.0); HEMOGLOBIN 9.2 g/dL (14.0-18.0); MEAN CORPUSCULAR HEMOGLOBIN 31.5 pg (28.0-32.0); MEAN CORPUSCULAR VOLUME 94.3 fL (80.0-94.0); PLATELET 118 x1000/uL (130-400); RED BLOOD CELL COUNT 2.91 mill/uL (4.7-6.1); RED CELL DISTRIBUTION WIDTH 17.5 % (11.6-14.6)
[2019-09-17] VITALS (12 sets, daily range): BP systolic 91–164; BP diastolic 48–76
[2019-09-17] MEDS: ACETYLCYSTEINE 100MG/ML 10% VIAL 4ML INH SCH ×3 (00:29→20:10)
[2019-09-17] MEDS: LORAZEPAM 2MG/ML CPJ IV PRN ×2 (00:53→23:12)
[2019-09-17] MEDS: SODIUM CHLORIDE 0.45% 1,000 ML IV SCH ×2 (06:21→13:11)
[2019-09-17] MEDS: MEROPENEM 500 MG in SODIUM CHLORIDE 0.9% 50 ML IV SCH ×2 (06:22→17:48)
[2019-09-17 07:18] LABS: BASOPHILS % 0.2 % (0.0-2.0); HEMATOCRIT. 25.1 % (42.0-52.0); HEMOGLOBIN. 8.4 g/dL (14.0-18.0); LYMPHOCYTES % 7.8 % (20.0-50.0); MEAN CORPUSCULAR HEMOGLOBIN 31.2 pg (28.0-32.0); MEAN CORPUSCULAR VOLUME 92.7 fL (80.0-94.0); MEAN PLATELET VOLUME 8.1 fl (7.4-10.4); MONOCYTES % 7.5 % (2.0-8.0); NEUTROPHILS % 83.5 % (40.0-76.0); PLATELET 111 x1000/uL (130-400); RED BLOOD CELL COUNT 2.71 mill/uL (4.7-6.1); RED CELL DISTRIBUTION WIDTH 17.6 % (11.6-14.6)
[2019-09-17] MEDS: IPRATROPIUM/ALBUTEROL 0.5-3(2.5)MG/3ML NEB HHN SCH ×3 (08:10→20:09)
[2019-09-17] MEDS: PANTOPRAZOLE SODIUM 40 MG/VIAL IV SCH (08:21)
[2019-09-17] MEDS: SUCRALFATE 1 G/10 ML UDC PO SCH ×4 (08:21→20:55)
[2019-09-17] MEDS ORDERED: FUROSEMIDE 40MG/4ML VIAL IVP NR (08:30)
[2019-09-17 13:26] LABS: INR 1.7; PROTHROMBIN TIME 18.5 sec (9.6-11.0)
[2019-09-17] MEDS ORDERED: PHYTONADIONE 10MG/ML AMP SUBCUT NR (15:00)
[2019-09-17] MEDS: NYSTATIN POWDER 15GM TOP SCH (22:20)
[2019-09-18] VITALS (10 sets, daily range): BP systolic 100–136; BP diastolic 64–85
[2019-09-18] MEDS: IPRATROPIUM/ALBUTEROL 0.5-3(2.5)MG/3ML NEB HHN SCH ×3 (02:23→16:11)
[2019-09-18] MEDS: MEROPENEM 500 MG in SODIUM CHLORIDE 0.9% 50 ML IV SCH (05:47)
[2019-09-18 06:47] LABS: INR 1.7; PROTHROMBIN TIME 18.1 sec (9.6-11.0)
[2019-09-18 07:47] LABS: HEMOGLOBIN. 8.5 g/dL (14.0-18.0); MEAN CORPUSCULAR VOLUME 94.7 fL (80.0-94.0); MEAN PLATELET VOLUME 9.7 fl (7.4-10.4); PLATELET 108 x1000/uL (130-400); RED BLOOD CELL COUNT 2.74 mill/uL (4.7-6.1); RED CELL DISTRIBUTION WIDTH 17.9 % (11.6-14.6)
[2019-09-18 09:05] LABS: BG BASE EXCESS 3.7 mmol/L (-2.0-2.0); BG CARBOXYHEMOGLOBIN 0.3 % (0.5-1.5); BG DEOXYHEMOGLOBIN 8.1 % (0.0-5.0); BG FRACTION INSPIRED OXYGEN 32; BG HCO3 ACT 28.1 mmol/L (22.0-26.0); BG METHEMOGLOBIN 0.3 % (0.0-1.5); BG OXYGEN SATURATION 91.9 % (92.0-98.5); BG OXYHEMOGLOBIN 91.3 % (94.0-97.0); BG PCO2 41.4 mmHg (35.0-45.0); BG PH 7.449 (7.350-7.450); BG PO2 67.9 mmHg (75.0-100.0); BG SAMPLE SITE RIGHT RADIAL; BG TOTAL HEMOGLOBIN 9.4 g/dL (12.0-18.0); BG VENT MODE NASAL CANNULA
[2019-09-18] MEDS: PANTOPRAZOLE SODIUM 40 MG/VIAL IV SCH (09:15)
[2019-09-18] MEDS: SUCRALFATE 1 G/10 ML UDC PO SCH ×3 (09:15→17:07)
[2019-09-18] MEDS: NYSTATIN POWDER 15GM TOP SCH (09:16)
[2019-09-18] MEDS: ACETYLCYSTEINE 100MG/ML 10% VIAL 4ML INH SCH ×2 (10:18→16:11)
[2019-09-18 12:42] LABS: PLATELET ESTIMATE DECREASED
== END 2019-09-18 17:55 | DRG 871 ==
LOC: 7WST 15:28 → 5EST 09-12 21:13
PROVIDERS: ADMIT Internal Medicine; ATTEND Internal Medicine
PROC: 30233N1 Transfusion of Nonautologous Red Blood Cells into Peripheral Vein, Percutaneous Approach (ICD-10-PCS; principal; 2019-09-16)
DX: A41.9 Sepsis, unspecified organism (principal); E43 Unspecified severe protein-calorie malnutrition; G93.41 Metabolic encephalopathy; J18.9 Pneumonia, unspecified organism; J96.01 Acute respiratory failure with hypoxia; N17.0 Acute kidney failure with tubular necrosis; J96.02 Acute respiratory failure with hypercapnia; G62.81 Critical illness polyneuropathy; J44.0 Chronic obstructive pulmonary disease with (acute) lower respiratory infection; J91.8 Pleural effusion in other conditions classified elsewhere; K52.1 Toxic gastroenteritis and colitis; K92.2 Gastrointestinal hemorrhage, unspecified; K56.609 Unspecified intestinal obstruction, unspecified as to partial versus complete obstruction; K56.7 Ileus, unspecified; L89.159 Pressure ulcer of sacral region, unspecified stage; F17.200 Nicotine dependence, unspecified, uncomplicated; I95.1 Orthostatic hypotension; T36.95XA Adverse effect of unspecified systemic antibiotic, initial encounter; T47.3X5A Adverse effect of saline and osmotic laxatives, initial encounter; E83.42 Hypomagnesemia; R73.9 Hyperglycemia, unspecified; I10 Essential (primary) hypertension; R26.9 Unspecified abnormalities of gait and mobility; F41.9 Anxiety disorder, unspecified; D69.6 Thrombocytopenia, unspecified; D50.9 Iron deficiency anemia, unspecified; F10.20 Alcohol dependence, uncomplicated; F32.9 Major depressive disorder, single episode, unspecified; K70.31 Alcoholic cirrhosis of liver with ascites; Y92.89 Other specified places as the place of occurrence of the external cause; Z95.828 Presence of other vascular implants and grafts; Z86.718 Personal history of other venous thrombosis and embolism; Z78.1 Physical restraint status; Z86.711 Personal history of pulmonary embolism; Z68.30 Body mass index [BMI] 30.0-30.9, adult
CPT/HCPCS: 36415; 36600; 71045; 71250; 71275; 74018; 74176; 80048; 80076; 82140; 82375; 82550; 82570; 82805; 82962; 83735; 84100; 84300; 85025; 85027; 85379; 86705; 86709; 86803; 86850; 86900; 86920; 87340; 87493; 92523; 92610; 93005; 94640; 94667; 97162; 97164; 97166; 97168; 97530; 97535; C9113; J0692; J1650; J1940; J1956; J2060; J2185; J2405; J2765; J3370; J3430; J3475; J7030; J7060; J7608; P9016; Q9963; Q9967